=== PATIENT | male | born 1965 | race Caucasian/White ===

== ENCOUNTER → 2019-09-12 14:09 | Outpatient (BNVA) | payer MEDICARE, MEDICAID, SELFPAY | PROVIDERS: Visit Provider Nurse Practitioner Family | DX: R05 Cough (principal) | CPT/HCPCS: 71046 ==

== ENCOUNTER → 2019-09-17 11:22 | Outpatient (BNVA) | payer MEDICARE, MEDICAID, SELFPAY | PROVIDERS: Visit Provider Nurse Practitioner Family | DX: J43.9 Emphysema, unspecified (principal); J18.9 Pneumonia, unspecified organism | CPT/HCPCS: 71046 ==

== ENCOUNTER 2019-09-18 05:08 | Emergency (ER) | payer MEDICARE, MEDICAID, SELFPAY ==
[2019-09-18 05:12] VITALS: BP 137/89; PULSE 87; RESP 20; TEMP 37; O2SAT 93; BMI 22.1
--- NOTE | 2019-09-18 05:22 | ED_ITS ---
Entered by Brenda Arredondo, acting as scribe for Documented by User: Emma Rivera MD 09/18/19 05:37 HPI - SOB/Dyspnea General: Chief Complaint: Shortness of Breath/Dyspnea Stated Complaint: SOB/COUGH Time Seen by Provider: 09/18/19 05:22 Source: patient Mode of arrival: ambulatory Limitations: no limitations History of Present Illness: HPI Narrative: 54 yo m came to the er for shortness of breath. Patient states that he has had cough and shortness of breath over the last 2 days. Patient recently seen at an urgent care and was placed on prednisone along with Augmentin. He does have a history of COPD and was a former smoker. He states that his cough got much worse and is productive in nature. He denies any worsening or improving factors. He denies any fevers. Denies any sick contacts.. MD elicited complaint: shortness of breath and cough Pertinent past history: COPD Onset (ago): day(s) (last night) Timing: constant Severity: mild Exacerbating factors: nothing Relieving factors: nothing Known history of: COPD Associated symptoms: Reports cough; Deny abdominal pain, chest pain, fever(s), nausea or vomiting Treatment prior to arrival: none Review of Systems General: Reports: other (negative unless marked) Const: Denies: fever, chills, body aches or change in appetite Eyes: Denies: blurry vision or eye discomfort ENMT: Denies: throat pain or dental pain Card: Denies: chest pain Resp: Reports: shortness of breath, productive cough and wheezing GI: Denies: abdominal pain, nausea, vomiting or diarrhea : Denies: painful urination Musc: Denies: neck pain or back pain Skin/Breast: Denies: rash Neuro: Denies: headache Psych: Denies: depression Jc/Lymph: Denies: easy bruising All/Imm: Denies: hives PFSH ED PFSH: Statuses (acute, chronic, etc) shown below reflect problem list status as previously entered and may not be historically accurate Social History Smoking and tobacco status: former smoker Physical Exam Const: COMMON NORMALS: no apparent distress, oriented x3 and healthy appearing HENMT: COMMON NORMALS: normocephalic and head/scalp atraumatic HEAD & SCALP: normocephalic and atraumatic Eye: COMMON NORMALS: PERRL and EOMs intact bilaterally PUPIL: Yes PERRL Neck/C-Spine: COMMON NORMALS: full ROM and supple Chest: COMMONS NORMALS: inspection of chest normal and palpation of chest normal Resp: COMMON NORMALS: normal respiratory effort, no retractions and no use of accessory muscles AUSCULTATION: wheezes Cardio: COMMON NORMALS: regular rate, regular rhythm and no murmurs RATE: regular rate RHYTHM: regular rhythm GI: COMMON NORMALS: normal to inspection, nondistended, normoactive bowel sounds, soft to palpation, non-tender and no masses PALPATION: Yes soft Extremity: COMMON NORMALS: normal to inspection and full ROM Neuro: COMMON NORMALS: oriented x3, moves all extremities and no focal motor deficits Psych: COMMON NORMALS: mental status grossly normal, thought process normal and cooperative THOUGHT PROCESS: normal thought process Skin: COMMON NORMALS: no rashes or lesions noted and no wounds GENERAL SKIN EXAM: no rashes or lesions noted Course Vital Signs: Vital signs: Vital Signs Temperature 98.8 F 09/18/19 05:44 Pulse Rate 80 09/18/19 08:17 Respiratory Rate 20 H 09/18/19 08:17 Blood Pressure 110/64 09/18/19 08:17 Pulse Oximetry 97 09/18/19 08:17 MDM - SOB/Dyspnea MDM Narrative: Medical decision making narrative: Patient presents with cough and congestion that is likely COPD versus a pneumonia. We will get x-rays along with labs. Patient's care turned over to Dr. Laws and he will follow these. Lab Data: Labs: Lab Results 09/18/19 09/18/19 Range/Units 05:50 05:50 WBC 8.3 (4.0-10.0) 10^3/ uL RBC 5.22 (4.1-5.3) 10^6/u L Hgb 15.3 (11.7-16.6) g/dL Hct 46.6 (42.0-52.0) % MCV 89.3 (80-94) fL MCH 29.3 (28.0-34.0) pg MCHC 32.8 (30.0-36.0) g/dL RDW 12.9 (12.1-15.1) % Plt Count 159 (130-400) 10^3/c mm MPV 10.7 H (7.4-10.4) fL Neut % (Auto) 78.4 % Lymph % (Auto) 8.2 % [place] % (Auto) 11.0 % Eos % (Auto) 1.6 % Baso % (Auto) 0.4 % Neut # (Auto) 6.5 (1.8-7.7) 10^3/u L Lymph # (Auto) 0.7 L (0.8-4.8) 10^3/u L [place] # (Auto) 0.9 (0.2-0.9) 10^3/u L Eos # (Auto) 0.1 (0.0-0.8) 10^3/u L Baso # (Auto) 0.0 (0.0-0.1) 10^3/u L Nucleated RBC % (a uto) 0 % Nucleated RBCs # 0.0 /100WBC Sodium 140 (136-145) mmol/L Potassium 3.7 (3.5-5.1) mmol/L Chloride 99 (98-107) mmol/L Carbon Dioxide 30 H (22-29) mmol/L Anion Gap 14.7 (5-19) BUN 17 (6-20) mg/dL Creatinine 0.9 (0.7-1.2) mg/dL GFR Calculation 88.3 L (90-130) mL/min Glucose 98 (65-115) mg/dL Calcium 9.8 (8.5-10.5) mg/dL Total Bilirubin 0.7 (0.15-1.2) mg/dL AST 16 (0-40) U/L ALT 17 (0-41) U/L Alkaline Phosphata se 90 (40-130) IU/L NT-Pro-B Natriuret Pep 68 (0-125) pg/mL Total Protein 8.1 (6.6-8.7) g/dL Albumin 4.2 (3.5-5.2) g/dL Globulin 3.9 (1.3-4.6) g/dL Discharge Plan Discharge Patient Disposition: Home, Self-Care Clinical Impression: Pneumonia, Acute exacerbation of chronic obstructive airways disease Condition: Stable Prescriptions: No Action albuterol sulfate [Ventolin HFA] 90 mcg/actuation HFA aerosol inhaler 2 puff INHALATION QID PRN (Reason: shortness of breath or wheezing) Qty: 18 RF: 0 amoxicillin-pot clavulanate [Augmentin] 875-125 mg tablet 1 tab PO BID 10 Days Qty: 20 RF: 0 prednisone 10 mg tablets,dose pack See Rx Instructions PO PER PKG DIR Qty: 21 RF: 0 Discharge Orders: Discharge Order (Routine); Ordered 09/18/19 Ordered By: Dilip Kitchen Discharge Diet: Usual diet Discharge Activity: Increase activity as tolerated Activity Restrictions/Additional Instructions: Continue current medications no changes. Follow-up with your primary care doctor as scheduled if symptoms worsen or change return Discharge Date/Time: 09/18/19 08:18 Coding Level of Care Code ED Circuitry Negative Inspector for Chg Fwd Exam Problem Focused Documented by User: Dilip Kitchen DO 09/19/19 13:58 HPI - SOB/Dyspnea General: Chief Complaint: Shortness of Breath/Dyspnea Stated Complaint: SOB/COUGH Time Seen by Provider: 09/18/19 05:22 PFSH ED PFSH: Statuses (acute, chronic, etc) shown below reflect problem list status as previously entered and may not be historically accurate Social History Smoking and tobacco status: former smoker Physical Exam Const: COMMON NORMALS: no apparent distress GENERAL APPEARANCE: cooperative and comfortable ORIENTATION/CONSCIOUSNESS: Yes awake, Yes oriented to person, Yes oriented to place and Yes oriented to time HENMT: COMMON NORMALS: normocephalic, head/scalp atraumatic, hearing grossly normal bilaterally, external ears normal, EAC's normal, TM's normal bilaterally, nasal mucous membranes and turbinates normal, moist oral mucous membranes and oropharynx normal HEAD & SCALP: normocephalic and atraumatic NOSE: nasal mucous membranes and turbinates normal EXTERNAL EAR: Yes external ears normal EXTERNAL AUDITORY CANAL: EAC's normal TYMPANIC MEMBRANE: TM's normal bilaterally Eye: COMMON NORMALS: PERRL, EOMs intact bilaterally, conjunctivae normal and no scleral icterus CONJUNCTIVA: Yes conjunctivae normal PUPIL: Yes PERRL Neck/C-Spine: COMMON NORMALS: full ROM, no lymphadenopathy, supple and no JVD Lymph: LYMPHATIC: no lymphadenopathy noted and no lymphedema noted Resp: AUSCULTATION: wheezes (mild) throughout Cardio: COMMON NORMALS: no JVD, regular rate, regular rhythm and no murmurs RATE: regular rate RHYTHM: regular rhythm GI: COMMON NORMALS: soft to palpation and no hepatosplenomegaly AUSCULTATION: Yes normoactive bowel sounds PALPATION: Yes soft, No tender, No guarding and Yes no hepatosplenomegaly Extremity: COMMON NORMALS: normal to inspection, normal capillary refill, no clubbing, cyanosis or edema, no calf tenderness and no pedal edema Neuro: SENSORIUM/ORIENTATION: Yes oriented to person, Yes oriented to place and Yes oriented to time Skin: COMMON NORMALS: no rashes or lesions noted GENERAL SKIN EXAM: no rashes or lesions noted Course ED course: Patient improved will discharge home on amoxicillin clavulanic acid also on prednisone and albuterol. Vital Signs: Vital signs: Vital Signs Temperature 98.8 F 09/18/19 05:44 Pulse Rate 80 09/18/19 08:17 Respiratory Rate 20 H 09/18/19 08:17 Blood Pressure 110/64 09/18/19 08:17 Pulse Oximetry 97 09/18/19 08:17 MDM - SOB/Dyspnea Lab Data: Labs: Lab Results 09/18/19 09/18/19 Range/Units 05:50 05:50 WBC 8.3 (4.0-10.0) 10^3/ uL RBC 5.22 (4.1-5.3) 10^6/u L Hgb 15.3 (11.7-16.6) g/dL Hct 46.6 (42.0-52.0) % MCV 89.3 (80-94) fL MCH 29.3 (28.0-34.0) pg MCHC 32.8 (30.0-36.0) g/dL RDW 12.9 (12.1-15.1) % Plt Count 159 (130-400) 10^3/c mm MPV 10.7 H (7.4-10.4) fL Neut % (Auto) 78.4 % Lymph % (Auto) 8.2 % [place] % (Auto) 11.0 % Eos % (Auto) 1.6 % Baso % (Auto) 0.4 % Neut # (Auto) 6.5 (1.8-7.7) 10^3/u L Lymph # (Auto) 0.7 L (0.8-4.8) 10^3/u L [place] # (Auto) 0.9 (0.2-0.9) 10^3/u L Eos # (Auto) 0.1 (0.0-0.8) 10^3/u L Baso # (Auto) 0.0 (0.0-0.1) 10^3/u L Nucleated RBC % (a uto) 0 % Nucleated RBCs # 0.0 /100WBC Sodium 140 (136-145) mmol/L Potassium 3.7 (3.5-5.1) mmol/L Chloride 99 (98-107) mmol/L Carbon Dioxide 30 H (22-29) mmol/L Anion Gap 14.7 (5-19) BUN 17 (6-20) mg/dL Creatinine 0.9 (0.7-1.2) mg/dL GFR Calculation 88.3 L (90-130) mL/min Glucose 98 (65-115) mg/dL Calcium 9.8 (8.5-10.5) mg/dL Total Bilirubin 0.7 (0.15-1.2) mg/dL AST 16 (0-40) U/L ALT 17 (0-41) U/L Alkaline Phosphata se 90 (40-130) IU/L NT-Pro-B Natriuret Pep 68 (0-125) pg/mL Total Protein 8.1 (6.6-8.7) g/dL Albumin 4.2 (3.5-5.2) g/dL Globulin 3.9 (1.3-4.6) g/dL Discharge Plan Discharge Patient Disposition: Home, Self-Care Clinical Impression: Pneumonia, Acute exacerbation of chronic obstructive airways disease Condition: Stable Prescriptions: No Action albuterol sulfate [Ventolin HFA] 90 mcg/actuation HFA aerosol inhaler 2 puff INHALATION QID PRN (Reason: shortness of breath or wheezing) Qty: 18 RF: 0 amoxicillin-pot clavulanate [Augmentin] 875-125 mg tablet 1 tab PO BID 10 Days Qty: 20 RF: 0 prednisone 10 mg tablets,dose pack See Rx Instructions PO PER PKG DIR Qty: 21 RF: 0 Discharge Orders: Discharge Order (Routine); Ordered 09/18/19 Ordered By: Dilip Kitchen Discharge Diet: Usual diet Discharge Activity: Increase activity as tolerated Activity Restrictions/Additional Instructions: Continue current medications no changes. Follow-up with your primary care doctor as scheduled if symptoms worsen or change return Discharge Date/Time: 09/18/19 08:18 Coding Level of Care Code ED Circuitry Negative Inspector for Chg Fwd Exam Problem Focused The documentation recorded by the Arnulfo pierce Stephanie Lyn, accurately reflects the service I personally performed and the decisions made by Miguel canales Korby, MD Sep 18, 2019 05:08
--- NOTE | 2019-09-18 05:26 | XR_ITS ---
WS: [id number] PORTABLE CHEST HISTORY: cough COMPARISON: 09/17/2019 Mild pulmonary hyperinflation. Benign calcifications project over the LEFT apex. There is mild inters titial thickening at the lung bases which is new. Slightly greater at the LEFT lung base. No pleural effusion or pneumothorax. Cardiac size: Normal. Mediastinum/Aorta: Normal mediastinum. Marked deformity of the mid RIGHT clavicle from an old healed fracture. XR/XR chest 1V portable [id number] IMPRESSION: 1. Bilateral lower lobe pneumonitis or endobronchial inflammatory changes. 2. Mild emphysema.
[2019-09-18 05:44] VITALS: BP 119/80; PULSE 86; RESP 14; TEMP 37.1; O2SAT 100
[2019-09-18 06:01] LABS: Basophils % 0.4 %; Eosinophils # 0.1 10^3/uL (0.0-0.8); Eosinophils % 1.6 %; Hematocrit 46.6 % (42.0-52.0); Hemoglobin 15.3 g/dL (11.7-16.6); Lymphocytes # 0.7 10^3/uL (0.8-4.8); Lymphocytes % 8.2 %; Mean Corpuscular HGB Conc 32.8 g/dL (30.0-36.0); Mean Corpuscular Hemoglobin 29.3 pg (28.0-34.0); Mean Corpuscular Volume 89.3 fL (80-94); Mean Platelet Volume 10.7 fL (7.4-10.4); Monocytes # 0.9 10^3/uL (0.2-0.9); Neutrophils # 6.5 10^3/uL (1.8-7.7); Neutrophils % 78.4 %; Nucleated Red Blood Cells % 0 %; Platelet Count 159 10^3/cmm (130-400); Red Blood Count 5.22 10^6/uL (4.1-5.3); Red Cell Distribution Width 12.9 % (12.1-15.1); White Blood Count 8.3 10^3/uL (4.0-10.0)
[2019-09-18 06:36] LABS: Alanine Aminotransferase 17 U/L (0-41); Albumin Level 4.2 g/dL (3.5-5.2); Alkaline Phosphatase 90 IU/L (40-130); Anion Gap 14.7 (5-19); Aspartate Amino Transferase 16 U/L (0-40); Blood Urea Nitrogen 17 mg/dL (6-20); Calcium 9.8 mg/dL (8.5-10.5); Carbon Dioxide 30 mmol/L (22-29); Chloride 99 mmol/L (98-107); Globulin 3.9 g/dL (1.3-4.6); Glomerular Filtration Rate 88.3 mL/min (90-130); Glucose 98 mg/dL (65-115); NT Pro B Type Natriuretic Pept 68 pg/mL (0-125); Potassium 3.7 mmol/L (3.5-5.1); Sodium 140 mmol/L (136-145); Total Bilirubin 0.7 mg/dL (0.15-1.2); Total Protein 8.1 g/dL (6.6-8.7)
[2019-09-18 08:17] VITALS: BP 110/64; PULSE 80; RESP 20; O2SAT 97
== END 2019-09-18 08:18 | disposition home or self-care (01) ==
PROVIDERS: Emergency Medicine; Emergency Provider Family Medicine
DX: J18.9 Pneumonia, unspecified organism (principal); J44.1 Chronic obstructive pulmonary disease with (acute) exacerbation; Z87.891 Personal history of nicotine dependence
CPT/HCPCS: 71045; 80053; 83880; 85025; 99282; 99283

== ENCOUNTER 2020-03-07 18:57 | Emergency (ER) | payer MEDICARE, MEDICAID, SELFPAY ==
[2020-03-07 19:02] VITALS: BP 127/87; PULSE 96; RESP 18; TEMP 36.7; O2SAT 94; BMI 20.9
--- NOTE | 2020-03-07 19:08 | ED_ITS ---
HPI - Wound/Laceration General: Chief Complaint: Wound/Laceration Stated Complaint: hand injury Time Seen by Provider: 03/07/20 19:08 History of Present Illness: Associated symptoms: Denies chills, fever(s), nausea or vomiting Review of Systems Const: Denies: fever(s), chills or fatigue Eyes: Denies: change in vision or eye discomfort ENMT: Denies: throat pain, odynophagia, nasal discharge or nasal congestion Card: Denies: chest pain, palpitations, edema, swelling of feet/ankles, dyspnea on exertion or orthopnea Resp: Denies: dyspnea, productive cough or non-productive cough GI: Denies: abdominal pain, nausea, vomiting, diarrhea, constipation or hematochezia : Denies: flank pain, difficulty urinating, dysuria or hematuria Musc: Denies: neck pain, back pain or extremity swelling Skin/Breast: Denies: rash or new lesions Neuro: Denies: headache(s), numbness in extremities or weakness in extremities PFSH ED PFSH: Social History Smoking and tobacco status: former smoker Physical Exam Const: COMMON NORMALS: patient oriented x3 HENMT: COMMON NORMALS: normocephalic HEAD & SCALP: normocephalic MOUTH: Normal oral and palatal mucosa present THROAT: posterior oropharynx normal and uvula midline Neck/C-Spine: COMMON NORMALS: supple GENERAL: Yes normal visual inspection Resp: COMMON NORMALS: normal respiratory effort, No retractions, No use of accessory muscles and clear to auscultation bilaterally AUSCULTATION: clear to auscultation bilaterally Cardio: COMMON NORMALS: regular rate, regular rhythm, S1 normal heart sound present, S2 normal heart sound present, No gallops present (Cardio), No clicks present (Cardio), No murmurs present (Cardio) and Peripheral pulses 2+ throughout RATE: regular rate RHYTHM: regular rhythm HEART SOUNDS: S1 normal heart sound present and S2 normal heart sound present PERIPHERAL PULSES: Peripheral pulses 2+ throughout GI: COMMON NORMALS: Normal to inspection, nondistended, normoactive bowel sounds present, Soft to palpation, non-tender and no masses PALPATION: Yes Soft to palpation : COMMON NORMALS: Yes no CVA tenderness BLADDER/KIDNEY EXAM: Yes no CVA tenderness Back/Pelvis: COMMON NORMALS: no CVA tenderness Neuro: COMMON NORMALS: patient oriented x3 and moves all extremities Course Vital Signs: Vital signs: Vital Signs Temperature 98.1 F 03/07/20 19:02 Pulse Rate 96 03/07/20 19:02 Respiratory Rate 18 03/07/20 19:02 Blood Pressure 127/87 03/07/20 19:02 Pulse Oximetry 94 03/07/20 19:02 Discharge Plan Discharge Prescriptions: No Action albuterol sulfate [Ventolin HFA] 90 mcg/actuation HFA aerosol inhaler 2 puff INHALATION QID PRN (Reason: shortness of breath or wheezing) Qty: 18 RF: 0 prednisone 10 mg tablets,dose pack See Rx Instructions PO PER PKG DIR Qty: 21 RF: 0 Coding Level of Care Code ED Special Officer Automat for Chg Vern
--- NOTE | 2020-03-07 19:29 | W.ED.WOUNDLC ---
HPI - Wound/Laceration General: Chief Complaint: Wound/Laceration Stated Complaint: hand injury Time Seen by Provider: 03/07/20 19:08 Source: patient Mode of arrival: ambulatory Limitations: no limitations History of Present Illness: HPI narrative: 54-year-old male states he stumbled while walking and lacerated his right hand on a piece of 10. Is 1 cm laceration to the palm of his hand and then a very superficial laceration to his right thumb. He states his pain is a 1 out of 10. He did strike his head denies any loss of consciousness and denies any headache at this time. Onset (ago): minute(s) Associated symptoms: Denies chills, fever(s), nausea or vomiting Review of Systems Const: Denies: fever(s), chills, body aches or change in appetite Eyes: Denies: blurry vision or eye discomfort ENMT: Denies: throat pain or dental pain Card: Denies: chest pain Resp: Denies: dyspnea GI: Denies: abdominal pain, nausea, vomiting or diarrhea : Denies: dysuria Musc: Denies: neck pain or back pain Skin/Breast: Denies: rash Neuro: Denies: headache(s) Psych: Denies: depression Jc/Lymph: Denies: easy bruising All/Imm: Denies: urticaria PFSH ED PFSH: Social History Smoking and tobacco status: former smoker Physical Exam Const: COMMON NORMALS: no acute distress, patient oriented x3 and healthy appearing HENMT: COMMON NORMALS: normocephalic and atraumatic HEAD & SCALP: normocephalic and atraumatic Eye: COMMON NORMALS: Equal, round and reactive pupils present and EOMs intact bilaterally PUPIL: Yes Equal, round and reactive pupils present Neck/C-Spine: COMMON NORMALS: full ROM and supple Chest: COMMONS NORMALS: normal inspection of the chest and normal palpation of entire chest wall Resp: COMMON NORMALS: normal respiratory effort, No retractions, No use of accessory muscles and clear to auscultation bilaterally AUSCULTATION: clear to auscultation bilaterally Cardio: COMMON NORMALS: regular rate, regular rhythm and No murmurs present (Cardio) RATE: regular rate RHYTHM: regular rhythm GI: COMMON NORMALS: Normal to inspection, nondistended, normoactive bowel sounds present, Soft to palpation, non-tender and no masses PALPATION: Yes Soft to palpation Extremity: COMMON NORMALS: normal to inspection and full ROM Neuro: COMMON NORMALS: patient oriented x3, moves all extremities and no focal motor deficits Psych: COMMON NORMALS: mental status grossly normal, Normal thought process present and cooperative THOUGHT PROCESS: Normal thought process present Skin: COMMON NORMALS: no rashes or lesions noted NARRATIVE SKIN EXAM: 1 cm laceration to the palm of the hand of his right hand with no tendon involvement and no bleeding at this time. Superficial laceration to the thumb that does not require sutures. GENERAL SKIN EXAM: no rashes or lesions noted Procedures Laceration Laceration 1: Site: upper extremity Side (If applicable): right Size (cm): 1 Description: linear Depth: simple, single layer Pre-repair: wound explored, irrigated extensively and deep structures intact Subcutaneous layer closed with: other (dermabond) Course Vital Signs: Vital signs: Vital Signs Temperature 98.1 F 03/07/20 19:02 Pulse Rate 96 03/07/20 19:02 Respiratory Rate 18 03/07/20 19:02 Blood Pressure 127/87 03/07/20 19:02 Pulse Oximetry 94 03/07/20 19:02 MDM - Wound/Laceration MDM Narrative: Medical decision making narrative: 54-year-old male who presents here with laceration to his palm that was closed with tissue adhesive. Patient was updated on his tetanus. Patient is well-appearing here and is stable for discharge. Discharge Plan Discharge Patient Disposition: Home Clinical Impression: Laceration Condition: Stable Prescriptions: No Action albuterol sulfate [Ventolin HFA] 90 mcg/actuation HFA aerosol inhaler 2 puff INHALATION QID PRN (Reason: shortness of breath or wheezing) Qty: 18 RF: 0 prednisone 10 mg tablets,dose pack See Rx Instructions PO PER PKG DIR Qty: 21 RF: 0 Discharge Orders: Discharge Order (Routine); Ordered 03/07/20 Ordered By: Emma Rivera Discharge Diet: Advance as tolerated Discharge Activity: Resume usual activity Patient Instructions: Laceration (ED) Coding Level of Care Code ED Hospital Intern for Iam Porras
[2020-03-07] MEDS: tetanus-dipt-pertussis 0.5 mL SDV IM (19:37)
== END 2020-03-07 19:57 | disposition home or self-care (01) ==
PROVIDERS: Emergency Provider Emergency Medicine
DX: S61.411A Laceration without foreign body of right hand, initial encounter (principal); W26.8XXA Contact with other sharp object(s), not elsewhere classified, initial encounter; Z87.891 Personal history of nicotine dependence; Z23 Encounter for immunization
CPT/HCPCS: 12001; 12345; 90715; 99281; 99282

== ENCOUNTER → 2020-04-30 11:05 | Outpatient (BNVA) | payer MEDICARE, MEDICAID, SELFPAY | PROVIDERS: Visit Provider Nurse Practitioner Family | DX: Z20.828 Contact with and (suspected) exposure to other viral communicable diseases (principal) | CPT/HCPCS: 87635 ==

== ENCOUNTER 2020-05-02 09:31 | Emergency (ER) | payer MEDICARE, MEDICAID, SELFPAY ==
[2020-05-02 09:41] VITALS: BP 153/88; PULSE 100; RESP 18; TEMP 36.2; O2SAT 93; BMI 20.3
[2020-05-02 09:46] VITALS: BP 153/88; PULSE 94; RESP 16; O2SAT 94
--- NOTE | 2020-05-02 09:50 | XRR_ITS ---
PROCEDURE INFORMATION: Exam: XR Left Elbow Exam date and time: 05/02/2020 9:51 AM Age: 55 years old Clinical indication: Injury or trauma; Injury history: Cut elbow; Initial encounter; Laceration; Left; Additional info: Foreign body TECHNIQUE: Imaging protocol: XR Left elbow. Views: 3 or more views. COMPARISON: No relevant prior studies available. FINDINGS: Bones/joints: No fracture. No dislocation. No anterior or posterior fat pad sign. Soft tissues: There is a posterior superficial soft tissue injury. No radiopaque foreign body. XR/XR elbow LT min 3V* [id number] IMPRESSION: Soft tissue injury without osseous injury.
--- NOTE | 2020-05-02 10:02 | ED_ITS ---
HPI - Wound/Laceration General: Chief Complaint: Wound/Laceration Stated Complaint: LEFT ARM LAC Time Seen by Provider: 05/02/20 09:46 History of Present Illness: HPI narrative: 55-year-old male patient presents to the emergency department complaining of laceration to his left elbow. Patient states he was working and smashed his elbow through a window. Patient arrives to emergency department with bleeding controlled. Patient is neurovascular intact distally. Patient's immunizations are up-to-date to include his tetanus shot. Associated symptoms: Denies fever(s) Review of Systems General: Reports: 10 or more systems reviewed and unremarkable except in HPI and below Const: Denies: fever(s) Card: Denies: chest pain Resp: Denies: dyspnea Musc: Reports: extremity pain (2 cm laceration to left elbow) PFS ED PFSH: Social History Smoking and tobacco status: former smoker Quit status (tobacco): has quit using tobacco Former quit date comment: PPD since age 14, states has been quit a long time Second hand smoke exposure: No Alcohol intake: former Lives independently: No Household members: family Marital status: Single Current occupational status: disabled History of recent travel: No Current gender identity: Male Physical Exam Const: COMMON NORMALS: no acute distress, average body habitus, patient oriented x3, no limitations, healthy appearing, alert and well nourished Neck/C-Spine: COMMON NORMALS: no JVD Resp: COMMON NORMALS: normal respiratory effort, No retractions, No use of accessory muscles, clear to auscultation bilaterally and percussion normal AUSCULTATION: clear to auscultation bilaterally PERCUSSION: percussion normal Cardio: COMMON NORMALS: no JVD, regular rate and regular rhythm RATE: regular rate RHYTHM: regular rhythm Extremity: LEFT UPPER EXTREMITY: Yes elbow joint (Pt has a 2 cm linear laceration pt is NVI distally. Bleeding is controlled) Neuro: COMMON NORMALS: patient oriented x3 SENSORIUM/ORIENTATION: Yes alert Psych: COMMON NORMALS: mental status grossly normal, Normal thought process present, cooperative, normal affect, speech normal, activity/motor behavior normal, denies hallucinations, denies homicidal ideation and denies suicidal ideation SPEECH: Yes normal speech THOUGHT PROCESS: Normal thought process present Skin: COMMON NORMALS: no rashes or lesions noted, no wounds, turgor normal, no jaundice, no petechiae and no mottling GENERAL SKIN EXAM: no rashes or lesions noted and turgor normal Procedures Laceration Laceration 1: Site: upper extremity (left elbow) Side (If applicable): left Size (cm): 2 Description: linear Depth: simple, single layer Local Anesthetic: lidocaine 1% and with epi Amount of anesthesia used (mL): 5 Pre-repair: wound explored and irrigated extensively Skin layer closed with: nylon Size (cm): 5-0 Number of sutures: 5 Technique: simple, interrupted Subcutaneous layer closed with: other (nylon) Course Vital Signs: Vital signs: Vital Signs Temperature 97.2 F L 05/02/20 09:41 Pulse Rate 94 05/02/20 09:46 Respiratory Rate 16 05/02/20 09:46 Blood Pressure 153/88 05/02/20 09:46 Pulse Oximetry 94 05/02/20 09:46 MDM - Wound/Laceration MDM Narrative: Medical decision making narrative: Patient is well-appearing nontoxic and in no acute distress. Patient has a laceration to his left elbow please see procedure note for suture repair. Patient states this was an accident and nonintentional patient denies any SI or HI. Patient is neurovascularly intact distally to injury. Wound was dressed. Patient's tetanus shot is up-to-date. Return precautions discussed home care instructions reviewed patient is medically cleared and appropriate for discharge I did do an x-ray to evaluate for possible foreign body and there was no evidence of foreign body Differential Diagnosis: Wound Differential Diagnosis: Likely laceration, abrasion and avulsion of skin Discharge Plan Discharge Patient Disposition: Home Condition: Stable Discharge Orders: Discharge Order (Routine); Ordered 05/02/20 Ordered By: Piper Guerrier Discharge Diet: Advance as tolerated Discharge Activity: Resume usual activity Patient Instructions: Laceration (ED), Suture Care (ED) Activity Restrictions/Additional Instructions: Please return to ER or PCP in 8-10 days or sooner for signs of infection as discussed or any other concerning findings Please follow wound care instructions as discussed and provided Coding Level of Care Code ED Construction Equipment Technician for Iam Porras
[2020-05-02 11:08] VITALS: BP 113/68; PULSE 87; RESP 16; O2SAT 94
== END 2020-05-02 11:05 | disposition home or self-care (01) ==
PROVIDERS: Emergency Provider Registered Nurse
DX: S51.012A Laceration without foreign body of left elbow, initial encounter (principal); W25.XXXA Contact with sharp glass, initial encounter
CPT/HCPCS: 12001; 12345; 73080; 99282; 99283

== ENCOUNTER 2021-01-07 20:40 | Emergency (ER) | payer MEDICARE, MEDICAID, SELFPAY ==
[2021-01-07 21:07] VITALS: BP 126/90; PULSE 88; RESP 15; TEMP 36.8; O2SAT 95; BMI 21.2
--- NOTE | 2021-01-07 22:08 | CTR_ITS ---
PROCEDURE INFORMATION: Exam: CT Cervical Spine Without Contrast Exam date and time: 01/07/2021 10:25 PM Age: 55 years old Clinical indication: Injury or trauma; Blunt trauma; Patient HX: Fall off porch TECHNIQUE: Imaging protocol: Computed tomography images of the cervical spine without contrast. Radiation optimization: All CT scans at this facility use at least one of these dose optimization techniques: automated exposure control; mA and/or kV adjustment per patient size (includes targeted exams where dose is matched to clinical indication); or iterative reconstruction. COMPARISON: No relevant prior studies available. RADIATION DOSE METRICS: Total DLP (mGy-cm): 600.2 FINDINGS: Bones/joints: Spinal alignment is normal. Vertebral body height is maintained. There is no acute fracture. There is mild multilevel facet spondylosis. There are bulky anterior vertebral osteophytes from C4 through C7. There is no acute fracture. 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 Discs/Spinal canal/Neural foramina: There is mild degenerative disc disease in the cervical spine. There is no spinal canal stenosis. Lungs: Lung apices are normal. Vasculature: There is mild atherosclerotic disease of the carotid arteries bilaterally. Soft tissues: Soft tissues in the neck and thoracic inlet are unremarkable. CT/CT cervical spin wo con* [id number] IMPRESSION: No acute fracture. Radiation Dose CTDIVOL = (mGy): DLP = 600.2 (mGy-cm)
--- NOTE | 2021-01-07 22:08 | CTR_ITS ---
PROCEDURE INFORMATION: Exam: CT Head Without Contrast Exam date and time: 01/07/2021 10:25 PM Age: 55 years old Clinical indication: Injury or trauma; Blunt trauma (contusions or hematomas); Injury details: Fall off porch TECHNIQUE: Imaging protocol: Computed tomography of the head without contrast. Radiation optimization: All CT scans at this facility use at least one of these dose optimization techniques: automated exposure control; mA and/or kV adjustment per patient size (includes targeted exams where dose is matched to clinical indication); or iterative reconstruction. COMPARISON: [place] [id number] 08/28/2018 8:01 AM RADIATION DOSE METRICS: Total DLP (mGy-cm): 1104.16 FINDINGS: Brain: There is hypoattenuation in the periventricular and subcortical white matter consistent with chronic microvascular disease. There is no acute intracranial hemorrhage. Cerebral ventricles: There is no significant ventricular dilation. The basal cisterns are unremarkable. Paranasal sinuses: The paranasal sinuses are clear. Mastoid air cells: The mastoid air cells are clear. Bones/joints: The calvarium is intact. Soft tissues: Unremarkable. CT/CT head wo con* [id number] IMPRESSION: No acute intracranial abnormality. Radiation Dose CTDIVOL = (mGy): DLP = 1104.16 (mGy-cm)
--- NOTE | 2021-01-07 22:08 | XRR_ITS ---
PROCEDURE INFORMATION: Exam: XR Right Shoulder Exam date and time: 01/07/2021 10:19 PM Age: 55 years old Clinical indication: Injury or trauma; Blunt trauma (contusions or hematomas); Shoulder; Right; Injury details: Fall off porch TECHNIQUE: Imaging protocol: XR Right shoulder. Views: 2 or more views. COMPARISON: No relevant prior studies available. FINDINGS: Bones/joints: Healed fracture of the clavicular shaft with residual deformity. No acute fracture or dislocation. Soft tissues: Unremarkable. XR/XR shoulder RT min 2V* [id number] IMPRESSION: No acute findings.
--- NOTE | 2021-01-07 23:07 | ED_ITS ---
HPI - Fall General: Chief Complaint: Fall Stated Complaint: pain inright side shoulder and neck,fell off porch Time Seen by Provider: 01/07/21 22:29 Source: patient Mode of arrival: ambulatory Limitations: no limitations History of Present Illness: HPI Narrative: 55-year-old male states he was walking and tripped and fell off a porch onto the ground. He states that he fell onto his right shoulder and neck and has had right shoulder neck pain since then. He also struck his head and has a mild headache. He denies any other injuries. Has been amatory since the event. He states the pain is a 5 out of 10. Denies any numbness or tingling. Associated symptoms-after fall: Reports headache(s) and neck pain; Denies abdominal pain or chest pain Review of Systems Const: Denies: fever(s), chills, body aches or change in appetite Eyes: Denies: blurry vision or eye discomfort ENMT: Denies: throat pain or dental pain Card: Denies: chest pain Resp: Denies: dyspnea GI: Denies: abdominal pain, nausea, vomiting or diarrhea : Denies: dysuria Musc: Reports: neck pain and extremity pain Skin/Breast: Denies: rash Neuro: Reports: headache(s) Psych: Denies: depression Jc/Lymph: Denies: easy bruising All/Imm: Denies: urticaria PFSH ED PFSH: Social History Smoking and tobacco status: former smoker Quit status (tobacco): has quit using tobacco Former quit date comment: PPD since age 14, states has been quit a long time Second hand smoke exposure: No Alcohol intake: former Lives independently: No Household members: family Marital status: Single Current occupational status: disabled History of recent travel: No Current gender identity: Male Physical Exam Const: COMMON NORMALS: no acute distress, patient oriented x3 and healthy appearing HENMT: COMMON NORMALS: normocephalic and atraumatic HEAD & SCALP: normocephalic and atraumatic Eye: COMMON NORMALS: Equal, round and reactive pupils present and EOMs intact bilaterally PUPIL: Yes Equal, round and reactive pupils present Neck/C-Spine: OTHER: currently in c collar Chest: COMMONS NORMALS: normal inspection of the chest and normal palpation of entire chest wall Resp: COMMON NORMALS: normal respiratory effort, No retractions, No use of accessory muscles and clear to auscultation bilaterally AUSCULTATION: clear to auscultation bilaterally Cardio: COMMON NORMALS: regular rate, regular rhythm and No murmurs present (Cardio) RATE: regular rate RHYTHM: regular rhythm GI: COMMON NORMALS: Normal to inspection, nondistended, normoactive bowel sounds present, Soft to palpation, non-tender and no masses PALPATION: Yes Soft to palpation Extremity: COMMON NORMALS: normal to inspection and full ROM NARRATIVE EXTREMITY EXAM: slight tenderness over right shoulder full rom Neuro: COMMON NORMALS: patient oriented x3, moves all extremities and no focal motor deficits Psych: COMMON NORMALS: mental status grossly normal, Normal thought process present and cooperative THOUGHT PROCESS: Normal thought process present Skin: COMMON NORMALS: no rashes or lesions noted and no wounds GENERAL SKIN EXAM: no rashes or lesions noted Course Vital Signs: Vital signs: Vital Signs Temperature 98.2 F 01/07/21 21:07 Pulse Rate 88 01/07/21 21:07 Respiratory Rate 15 01/07/21 21:07 Blood Pressure 126/90 01/07/21 21:07 Pulse Oximetry 95 01/07/21 21:07 MDM - Fall MDM Narrative: Medical decision making narrative: Greyson presents here with contusion to the shoulder and a neck strain. CT scans here are all negative. He is well-appearing here and is stable for discharge. He is to ice here and will place him on Naprosyn and Robaxin. He is return if worsening. Imaging Data^: xr r shoulder: Attestation: I personally reviewed and interpreted this imaging study as follows: Radiologist's impression: [address] [place] [address] XRay Report Signed Patient: Greyson Aguilar Unit #: [id number] : 1965 Age/Sex: 55 / M ADM Date: 01/07/21 Loc: ER Room/Bed: Attending Dr: Ordering Provider/Ordering MD: Emma Rivera MD Date of Service: 01/07/21 Procedure(s): XR shoulder RT min 2V* [id number] Accession Number(s): [id number] Report Number: [id number] PROCEDURE INFORMATION: Exam: XR Right Shoulder Exam date and time: 01/07/2021 10:19 PM Age: 55 years old Clinical indication: Injury or trauma; Blunt trauma (contusions or hematomas); Shoulder; Right; Injury details: Fall off porch TECHNIQUE: Imaging protocol: XR Right shoulder. Views: 2 or more views. COMPARISON: No relevant prior studies available. FINDINGS: Bones/joints: Healed fracture of the clavicular shaft with residual deformity. No acute fracture or dislocation. Soft tissues: Unremarkable. CT Head: Radiologist's impression: [facility] [place] [address] CT Scan Report Signed Patient: Greyson Aguilar Unit #: [id number] : 1965 Age/Sex: 55 / M ADM Date: 01/07/21 Loc: ER Room/Bed: Attending Dr: Ordering Provider/Ordering MD: Emma Rivera MD Date of Service: 01/07/21 Procedure(s): CT head wo con* [id number] Accession Number(s): [id number] Report Number: [id number] PROCEDURE INFORMATION: Exam: CT Head Without Contrast Exam date and time: 01/07/2021 10:25 PM Age: 55 years old Clinical indication: Injury or trauma; Blunt trauma (contusions or hematomas); Injury details: Fall off porch TECHNIQUE: Imaging protocol: Computed tomography of the head without contrast. Radiation optimization: All CT scans at this facility use at least one of these dose optimization techniques: automated exposure control; mA and/or kV adjustment per patient size (includes targeted exams where dose is matched to clinical indication); or iterative reconstruction. COMPARISON: [place] [id number] 08/28/2018 8:01 AM RADIATION DOSE METRICS: Total DLP (mGy-cm): 1104.16 FINDINGS: Brain: There is hypoattenuation in the periventricular and subcortical white matter consistent with chronic microvascular disease. There is no acute intracranial hemorrhage. Cerebral ventricles: There is no significant ventricular dilation. The basal cisterns are unremarkable. Paranasal sinuses: The paranasal sinuses are clear. Mastoid air cells: The mastoid air cells are clear. Bones/joints: The calvarium is intact. Soft tissues: Unremarkable. CT/CT head wo con* [id number] IMPRESSION: No acute intracranial abnormality. ct c spine: Attestation: I personally reviewed and interpreted this imaging study as follows: Radiologist's impression: [facility] [address] [address] Scan Report Signed Patient: Greyson Aguilar Unit #: [id number] : 1965 Age/Sex: 55 / M ADM Date: 01/07/21 Loc: ER Room/Bed: Attending Dr: Ordering Provider/Ordering MD: Emma Rivera MD Date of Service: 01/07/21 Procedure(s): CT cervical spin wo con* [id number] Accession Number(s): [id number] Report Number: [id number] PROCEDURE INFORMATION: Exam: CT Cervical Spine Without Contrast Exam date and time: 01/07/2021 10:25 PM Age: 55 years old Clinical indication: Injury or trauma; Blunt trauma; Patient HX: Fall off porch TECHNIQUE: Imaging protocol: Computed tomography images of the cervical spine without contrast. Radiation optimization: All CT scans at this facility use at least one of these dose optimization techniques: automated exposure control; mA and/or kV adjustment per patient size (includes targeted exams where dose is matched to clinical indication); or iterative reconstruction. COMPARISON: No relevant prior studies available. RADIATION DOSE METRICS: Total DLP (mGy-cm): 600.2 FINDINGS: Bones/joints: Spinal alignment is normal. Vertebral body height is maintained. There is no acute fracture. There is mild multilevel facet spondylosis. There are bulky anterior vertebral osteophytes from C4 through C7. There is no acute fracture. 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 Discs/Spinal canal/Neural foramina: There is mild degenerative disc disease in the cervical spine. There is no spinal canal stenosis. Lungs: Lung apices are normal. Vasculature: There is mild atherosclerotic disease of the carotid arteries bilaterally. Soft tissues: Soft tissues in the neck and thoracic inlet are unremarkable. CT/CT cervical spin wo con* [id number] IMPRESSION: No acute fracture. Radiation Dose CTDIVOL = (mGy): DLP = Discharge Plan Discharge Patient Disposition: Home Clinical Impression: Contusion of right shoulder, Fall, Cervical muscle strain Condition: Stable Prescriptions: New Robaxin-750 750 mg tablet 750 mg PO Q6H Qty: 30 RF: 0 Naprosyn 500 mg tablet 500 mg PO BID PRN (Reason: pain) Qty: 20 RF: 0 No Action carbamide peroxide [Debrox] 6.5 % drops 5 drop EAR-BOTH Q12H 4 Days Qty: 15 RF: 0 Discharge Orders: Discharge ED (Routine); Ordered 01/07/21 Ordered By: Emma Rivera Discharge Diet: Advance as tolerated Discharge Activity: Resume usual activity Patient Instructions: Shoulder Sprain (ED) Coding Level of Care Code ED Apparel Stock Checker for Ryang Fwd Exam Comprehensive
[2021-01-07] MEDS: HYDROcodone-acetaminophen 5-325 mg Tablet 1 TAB PO (23:21)
[2021-01-08] VITALS: BP 153/81; PULSE 76; RESP 17; O2SAT 97
== END 2021-01-08 00:04 | disposition home or self-care (01) ==
PROVIDERS: Emergency Provider Emergency Medicine
DX: S40.011A Contusion of right shoulder, initial encounter (principal); S16.1XXA Strain of muscle, fascia and tendon at neck level, initial encounter; Z87.891 Personal history of nicotine dependence; W17.89XA Other fall from one level to another, initial encounter
CPT/HCPCS: 70450; 72125; 73030; 99283

== ENCOUNTER 2021-02-18 17:19 | Emergency (ER) | payer MEDICARE, MEDICAID, SELFPAY ==
[2021-02-18 18:11] VITALS: BP 108/70; PULSE 101; RESP 20; TEMP 38.9; O2SAT 95; BMI 21.2
--- NOTE | 2021-02-18 19:30 | XRR_ITS ---
PROCEDURE INFORMATION: Exam: XR Chest Exam date and time: 02/18/2021 7:30 PM Age: 55 years old Clinical indication: Cough and shortness of breath; Additional info: SOB TECHNIQUE: Imaging protocol: XR of the chest. Views: 1 view. COMPARISON: CR XR chest 1V portable [id number] 09/18/2019 6:08 AM FINDINGS: Lungs: Emphysematous lung changes. Interstitial opacities are mildly increased at the bases and more conspicuous than prior. No spiculated pulmonary lesion. Hyperinflated lungs. Granulomas in the left upper lobe are stable. Pleural spaces: Unremarkable. No pleural effusion. No pneumothorax. Heart/Mediastinum: Unremarkable. No cardiomegaly. Bones/joints: Unremarkable. XR/XR chest 1V portable [id number] IMPRESSION: Mild relatively symmetric increase in infrahilar interstitial opacities. Aspiration pneumonitis or other multifocal pneumonia in the differential.
--- NOTE | 2021-02-18 23:12 | W.ED.COVID ---
HPI - COVID General: Chief Complaint: COVID symptoms Stated Complaint: COVID+, WEAK, SOB Time Seen by Provider: 02/18/21 23:03 Triage information: Has fever, cough or shortness of breath. No known COVID + exposure last 14 days History of Present Illness: HPI Narrative: Patient comes in today for complaints of cough and congestion for 2 to 3 days. Patient reports that at night he gets the chills and shakes. Patient states his brother told him that he had COVID-19. Review of the record has no report of COVID-19. Patient is moving oxygen well and does have a fever. COVID 19 common symptoms: positive fever(s) and productive cough COVID Results: SARS-CoV-2 Antigen (Rapid) Positive (Negative) H 02/18/21 23:30 02/18/21 SARS-CoV-2 RNA (RT-PCR) Not detected (NOT DETECTED) 04/30/20 11:05 04/30/20 Review of Systems General: Reports: 10 or more systems reviewed and unremarkable except in HPI and below Const: Reports: fever(s) Resp: Reports: productive cough PFSH ED PFSH: Social History Smoking and tobacco status: former smoker Quit status (tobacco): has quit using tobacco Former quit date comment: PPD since age 14, states has been quit a long time Second hand smoke exposure: No Alcohol intake: former Lives independently: No Household members: family Marital status: Single Current occupational status: disabled History of recent travel: No Current gender identity: Male Physical Exam Const: COMMON NORMALS: no acute distress and patient oriented x3 GENERAL APPEARANCE: cooperative HENMT: COMMON NORMALS: normocephalic, TM's normal bilaterally and Normal external nose present HEAD & SCALP: normal to inspection and normocephalic NOSE: Normal external nose present TYMPANIC MEMBRANE: TM's normal bilaterally MOUTH: Normal oral and palatal mucosa present THROAT: posterior oropharynx normal Eye: GENERAL EYE: appearance normal, both eyes and all related structures Neck/C-Spine: COMMON NORMALS: full ROM Lymph: LYMPHATIC: no lymphadenopathy noted Chest: COMMONS NORMALS: normal inspection of the chest Resp: COMMON NORMALS: normal respiratory effort EFFORT & INSPECTION: Yes able to speak in complete sentences AUSCULTATION: rhonchi Cardio: COMMON NORMALS: regular rate and regular rhythm RATE: regular rate RHYTHM: regular rhythm GI: COMMON NORMALS: non-tender : COMMON NORMALS: Yes no CVA tenderness BLADDER/KIDNEY EXAM: Yes no CVA tenderness Back/Pelvis: COMMON NORMALS: no CVA tenderness and thoracic and lumbar spine normal to inspection Extremity: COMMON NORMALS: normal to inspection Neuro: COMMON NORMALS: patient oriented x3 and moves all extremities Psych: COMMON NORMALS: mental status grossly normal and cooperative Skin: COMMON NORMALS: no rashes or lesions noted GENERAL SKIN EXAM: no rashes or lesions noted Course Vital Signs: Vital signs: Vital Signs Temperature 102.1 F H 02/18/21 18:11 Pulse Rate 103 H 02/18/21 23:45 Respiratory Rate 16 02/18/21 23:41 Blood Pressure 94/60 02/18/21 23:41 Pulse Oximetry 95 02/18/21 23:41 MDM - COVID MDM Narrative: Medical decision making narrative: Patient comes in today for complaints of fever, chills, shaking, and cough. On exam patient was febrile at 102 degrees. Patient was alert and responding appropriately to questions. Lungs were coarse throughout. Patient was told by his brother that he had a positive Covid test. Although review of the chart did not indicate any prior Covid testing. Differential diagnosis includes pneumonia, viral syndrome, bronchitis. Laboratory values showed a positive SARS Covid 2 antigen test, laboratory values show the elevated CRP, rest of his labs were unremarkable. Lactate was negative. Patient was given 1 L of IV fluids, acetaminophen for fever, and 10 mg of dexamethasone, and albuterol inhaler. Patient will be continued on home with dexamethasone, doxycycline for secondary infection, and the albuterol inhaler. Patient was maintaining oxygen well into the 95 to 98% on room air. Lab Data: Labs: Lab Results 02/18/21 02/18/21 02/18/21 Range/Units 23:30 23:30 23:30 WBC 3.9 L (4.0-10.0) 10^3/ uL RBC 4.54 (4.1-5.3) 10^6/u L Hgb 13.5 (11.7-16.6) g/dL Hct 41.0 L (42.0-52.0) % MCV 90.3 (80-94) fL MCH 29.7 (28.0-34.0) pg MCHC 32.9 (30.0-36.0) g/dL RDW 12.8 (12.1-15.1) % Plt Count 104 L (130-400) 10^3/c mm MPV 11.4 H (7.4-10.4) fL Neut % (Auto) 71.2 % Lymph % (Auto) 21.3 % Mason % (Auto) 6.9 % Eos % (Auto) 0.0 % Baso % (Auto) 0.3 % Neut # (Auto) 2.77 (1.8-7.7) 10^3/u L Lymph # (Auto) 0.8 (0.8-4.8) 10^3/u L Mason # (Auto) 0.3 (0.2-0.9) 10^3/u L Eos # (Auto) 0.0 (0.0-0.8) 10^3/u L Baso # (Auto) 0.0 (0.0-0.1) 10^3/u L Nucleated RBC % (a uto) 0 % Nucleated RBCs # 0.0 /100WBC Sodium 137 (136-145) mmol/L Potassium 3.3 L (3.5-5.1) mmol/L Chloride 98 (98-107) mmol/L Carbon Dioxide 28 (22-29) mmol/L Anion Gap 14.3 (5-19) BUN 12 (6-20) mg/dL Creatinine 0.9 (0.7-1.2) mg/dL GFR Calculation 87.9 L (90-130) mL/min Glucose 86 (65-115) mg/dL Calculated Osmolal ity 283 L (285-295) mOsm/k g Lactic Acid 1.3 (0.5-2.2) mmol/L Calcium 8.0 L (8.5-10.5) mg/dL Total Bilirubin 0.5 (0.15-1.2) mg/dL AST 102 H (0-40) U/L ALT 30 (0-41) U/L Alkaline Phosphata se 87 (40-130) IU/L C-Reactive Protein 115.1 H (0.0-4.9) mg/L NT-Pro-B Natriuret Pep 114 (0-125) pg/mL Total Protein 6.8 (6.6-8.7) g/dL Albumin 3.7 (3.5-5.2) g/dL Globulin 3.1 (1.3-4.6) g/dL SARS-CoV-2 Ag (Rap id) (Negative) 02/18/21 Range/Units 23:30 WBC (4.0-10.0) 10^3/ uL RBC (4.1-5.3) 10^6/u L Hgb (11.7-16.6) g/dL Hct (42.0-52.0) % MCV (80-94) fL MCH (28.0-34.0) pg MCHC (30.0-36.0) g/dL RDW (12.1-15.1) % Plt Count (130-400) 10^3/c mm MPV (7.4-10.4) fL Neut % (Auto) % Lymph % (Auto) % Mason % (Auto) % Eos % (Auto) % Baso % (Auto) % Neut # (Auto) (1.8-7.7) 10^3/u L Lymph # (Auto) (0.8-4.8) 10^3/u L Mason # (Auto) (0.2-0.9) 10^3/u L Eos # (Auto) (0.0-0.8) 10^3/u L Baso # (Auto) (0.0-0.1) 10^3/u L Nucleated RBC % (a uto) % Nucleated RBCs # /100WBC Sodium (136-145) mmol/L Potassium (3.5-5.1) mmol/L Chloride (98-107) mmol/L Carbon Dioxide (22-29) mmol/L Anion Gap (5-19) BUN (6-20) mg/dL Creatinine (0.7-1.2) mg/dL GFR Calculation (90-130) mL/min Glucose (65-115) mg/dL Calculated Osmolal ity (285-295) mOsm/k g Lactic Acid (0.5-2.2) mmol/L Calcium (8.5-10.5) mg/dL Total Bilirubin (0.15-1.2) mg/dL AST (0-40) U/L ALT (0-41) U/L Alkaline Phosphata se (40-130) IU/L C-Reactive Protein (0.0-4.9) mg/L NT-Pro-B Natriuret Pep (0-125) pg/mL Total Protein (6.6-8.7) g/dL Albumin (3.5-5.2) g/dL Globulin (1.3-4.6) g/dL SARS-CoV-2 Ag (Rap id) Positive H (Negative) COVID Results: SARS-CoV-2 Antigen (Rapid) Positive (Negative) H 02/18/21 23:30 02/18/21 SARS-CoV-2 RNA (RT-PCR) Not detected (NOT DETECTED) 04/30/20 11:05 04/30/20 Discharge Plan Discharge Patient Disposition: Home Clinical Impression: Pneumonia due to COVID-19 virus Condition: Stable Prescriptions: New dexamethasone 6 mg tablet 6 mg PO DAILY Qty: 5 RF: 0 doxycycline monohydrate 100 mg capsule 100 mg PO BID 7 Days Qty: 14 RF: 0 No Action carbamide peroxide [Debrox] 6.5 % drops 5 drop EAR-BOTH Q12H 4 Days Qty: 15 RF: 0 Robaxin-750 750 mg tablet 750 mg PO Q6H Qty: 30 RF: 0 Naprosyn 500 mg tablet 500 mg PO BID PRN (Reason: pain) Qty: 20 RF: 0 Discharge Orders: Discharge ED (Routine); Ordered 02/19/21 Ordered By: Justino Herndon Discharge Diet: Usual diet Discharge Activity: Increase activity as tolerated Patient Instructions: Viral Pneumonia (ED), Opioid Safety Activity Restrictions/Additional Instructions: Drink plenty of fluids. It is important to stay well-hydrated. Use acetaminophen and ibuprofen for pain and fever. Take medications as directed. Use albuterol inhaler 2 puffs every 4 hours to help with congestion and cough. Follow-up with primary care. Monitor pulse oxygen throughout the day. If you have readings that consistently stay below 90% return to the emergency room for further evaluation and treatment. Coding Level of Care Code ED Photocomposing Machine Operator for Iam Fwd Exam Comprehensive
[2021-02-18 23:19] VITALS: BP 111/52; PULSE 90; RESP 22; O2SAT 95
[2021-02-18 23:20] VITALS: O2SAT 95
[2021-02-18 23:30] VITALS: PULSE 101; RESP 20; O2SAT 92
[2021-02-18] MEDS: albuterol 8 gm MDI 2 PUFF INHALATION (23:30)
[2021-02-18] MEDS: sodium chloride 0.9% 1,000 ML 999 ML IV (23:37)
[2021-02-18] MEDS: acetaminophen 325 mg Tablet 650 MG PO (23:38)
[2021-02-18] MEDS: dexamethasone 4 mg/mL INJ 10 MG IVP (23:38)
[2021-02-18 23:41] VITALS: BP 94/60; PULSE 95; RESP 16; O2SAT 95
[2021-02-18 23:45] VITALS: PULSE 103
[2021-02-18 23:47] LABS: Basophils % 0.3 %; Hemoglobin 13.5 g/dL (11.7-16.6); Lymphocytes # 0.8 10^3/uL (0.8-4.8); Lymphocytes % 21.3 %; Mean Corpuscular HGB Conc 32.9 g/dL (30.0-36.0); Mean Corpuscular Hemoglobin 29.7 pg (28.0-34.0); Mean Corpuscular Volume 90.3 fL (80-94); Mean Platelet Volume 11.4 fL (7.4-10.4); Monocytes # 0.3 10^3/uL (0.2-0.9); Monocytes % 6.9 %; Neutrophils # 2.77 10^3/uL (1.8-7.7); Neutrophils % 71.2 %; Nucleated Red Blood Cells % 0 %; Platelet Count 104 10^3/cmm (130-400); Red Blood Count 4.54 10^6/uL (4.1-5.3); Red Cell Distribution Width 12.8 % (12.1-15.1); White Blood Count 3.9 10^3/uL (4.0-10.0)
[2021-02-19 00:01] LABS: Lactic Sepsis W/Reflex 1.3 mmol/L (0.5-2.2)
[2021-02-19 00:07] LABS: SARS Covid-2 Antigen Positive (Negative)
[2021-02-19 00:11] LABS: Alanine Aminotransferase 30 U/L (0-41); Albumin Level 3.7 g/dL (3.5-5.2); Alkaline Phosphatase 87 IU/L (40-130); Anion Gap 14.3 (5-19); Aspartate Amino Transferase 102 U/L (0-40); Blood Urea Nitrogen 12 mg/dL (6-20); C Reactive Protein 115.1 mg/L (0.0-4.9); Carbon Dioxide 28 mmol/L (22-29); Chloride 98 mmol/L (98-107); Globulin 3.1 g/dL (1.3-4.6); Glomerular Filtration Rate 87.9 mL/min (90-130); Glucose 86 mg/dL (65-115); NT Pro B Type Natriuretic Pept 114 pg/mL (0-125); Osmolality Calculated 283 mOsm/kg (285-295); Potassium 3.3 mmol/L (3.5-5.1); Sodium 137 mmol/L (136-145); Total Bilirubin 0.5 mg/dL (0.15-1.2); Total Protein 6.8 g/dL (6.6-8.7)
--- NOTE | 2021-02-19 00:19 | PC.NURSE ---
report to Spencer MOLINA
[2021-02-19 01:09] VITALS: BP 130/85; PULSE 80; RESP 18; TEMP 36.9; O2SAT 95
== END 2021-02-19 01:24 | disposition home or self-care (01) ==
PROVIDERS: Emergency Medicine; Emergency Provider Nurse Practitioner Family
DX: U07.1 COVID-19 (principal); J12.82 Pneumonia due to coronavirus disease 2019; Z87.891 Personal history of nicotine dependence
CPT/HCPCS: 71045; 80053; 83605; 83880; 85025; 86140; 87426; 94640; 96361; 96374; 99284; J1100; J3535; J7030

== ENCOUNTER 2021-02-20 13:55 | Emergency (ER) | payer MEDICARE, MEDICAID, SELFPAY ==
[2021-02-20] VITALS (7 sets, daily range): BP systolic 93–121; BP diastolic 59–82; PULSE 72–88; RESP 14–18; TEMP 36.4; O2SAT 90–96; BMI 21.2
--- NOTE | 2021-02-20 15:28 | XRR_ITS ---
PROCEDURE INFORMATION: Exam: XR Chest Exam date and time: 02/20/2021 3:28 PM Age: 55 years old Clinical indication: Cough; Additional info: Covid+known TECHNIQUE: Imaging protocol: XR of the chest. Views: 1 view. COMPARISON: CR (CHEST, ) 02/18/2021 8:20 PM FINDINGS: Lungs: Stable bibasilar atelectasis versus infiltrate. Emphysematous changes. Left upper lobe stable calcified granulomas. Pleural spaces: Unremarkable. No pleural effusion. No pneumothorax. Heart/Mediastinum: Unremarkable. No cardiomegaly. Bones/joints: Unremarkable. XR/XR chest 1V portable [id number] IMPRESSION: 1. Stable bibasilar atelectasis versus infiltrate. 2. Emphysematous changes. 3. Left upper lobe stable calcified granulomas.
[2021-02-20] MEDS: sodium chloride 0.9% 1,000 ML 999 ML IV (16:21)
[2021-02-20 16:36] LABS: Basophils % 0.3 %; Hematocrit 42.7 % (42.0-52.0); Lymphocytes # 0.5 10^3/uL (0.8-4.8); Lymphocytes % 6.3 %; Mean Corpuscular HGB Conc 32.8 g/dL (30.0-36.0); Mean Corpuscular Hemoglobin 29.5 pg (28.0-34.0); Mean Corpuscular Volume 90.1 fL (80-94); Mean Platelet Volume 11.6 fL (7.4-10.4); Monocytes # 0.6 10^3/uL (0.2-0.9); Neutrophils # 7.35 10^3/uL (1.8-7.7); Neutrophils % 85.1 %; Nucleated Red Blood Cells % 0 %; Platelet Count 135 10^3/cmm (130-400); Red Blood Count 4.74 10^6/uL (4.1-5.3); Red Cell Distribution Width 13.2 % (12.1-15.1); White Blood Count 8.6 10^3/uL (4.0-10.0)
[2021-02-20 16:50] LABS: Lactate (Lactic Acid level) 1.5 mmol/L (0.5-2.2)
[2021-02-20] MEDS: albuterol 8 gm MDI 2 PUFF INHALATION (16:50)
[2021-02-20 16:51] LABS: Alanine Aminotransferase 42 U/L (0-41); Albumin Level 3.7 g/dL (3.5-5.2); Alkaline Phosphatase 94 IU/L (40-130); Anion Gap 14.2 (5-19); Aspartate Amino Transferase 123 U/L (0-40); Blood Urea Nitrogen 22 mg/dL (6-20); Calcium 8.9 mg/dL (8.5-10.5); Carbon Dioxide 30 mmol/L (22-29); Chloride 103 mmol/L (98-107); Globulin 3.2 g/dL (1.3-4.6); Glomerular Filtration Rate 117.5 mL/min (90-130); Glucose 115 mg/dL (65-115); Osmolality Calculated 300 mOsm/kg (285-295); Potassium 4.2 mmol/L (3.5-5.1); Sodium 143 mmol/L (136-145); Total Bilirubin 0.5 mg/dL (0.15-1.2); Total Protein 6.9 g/dL (6.6-8.7)
--- NOTE | 2021-02-20 18:14 | ED_ITS ---
HPI - SOB/Dyspnea General: Chief Complaint: Shortness of Breath/Dyspnea Stated Complaint: SOB, COVID +, weakness Time Seen by Provider: 02/20/21 15:12 History of Present Illness: HPI Narrative: The patient is a 55-year-old male suffering from Covid for approximately a week who comes to the ER complaining of increased weakness, shortness of breath. He is mentally handicapped and I called his brother on the phone who said he is slightly more confused than usual and he had oxygen levels at home that dipped to 88% and then later 85% on room air so he brought him to the ER. Patient was seen here couple days ago and tested positive for Covid and was given doxycycline and a steroid to go home with. The patient still has those. His lungs are clear to auscultation bilaterally and he is resting comfortably. He says he has not eaten or drank anything in the past couple days. Context: recent illness Timing: constant Severity: moderate Associated symptoms: Reports no associated symptoms; Deny abdominal pain, chest pain, cough, dizziness, extremity pain, fever(s), nausea, orthopnea, palpitations, polyuria or vomiting Treatment prior to arrival: none Review of Systems General: Reports: 10 or more systems reviewed and unremarkable except in HPI and below Const: Reports: fatigue; Denies: fever(s) Eyes: Denies: change in vision, blurry vision or eye redness ENMT: Denies: throat pain, swelling of lips/tongue, ear or mastoid pain or nasal congestion Card: Denies: chest pain, palpitations, irregular heart rhythm, edema, dyspnea on exertion or orthopnea Resp: Reports: dyspnea; Denies: productive cough or non-productive cough GI: Denies: abdominal pain, nausea or vomiting : Denies: flank pain, urinary frequency or urinary urgency Musc: Denies: neck pain, back pain, extremity pain, joint pain, joint redness, limited range of motion or muscle weakness Skin/Breast: Denies: rash, pruritus, erythema, skin pain or skin tenderness Neuro: Denies: headache(s), numbness in extremities, weakness in extremities, sensory changes, difficulty walking, dizziness, confusion or Slurred speech present Psych: Denies: anxiety or depression Endo: Denies: polyuria All/Imm: Denies: urticaria, throat swelling or tongue swelling PFSH ED PFSH: Social History Smoking and tobacco status: former smoker Quit status (tobacco): has quit using tobacco Former quit date comment: PPD since age 14, states has been quit a long time Second hand smoke exposure: No Alcohol intake: former Lives independently: No Household members: family Marital status: Single Current occupational status: disabled History of recent travel: No Current gender identity: Male Physical Exam Const: COMMON NORMALS: no acute distress, average body habitus, patient oriented x3, no limitations, healthy appearing, alert and well nourished GENERAL APPEARANCE: cooperative, comfortable, well kempt and well developed ORIENTATION/CONSCIOUSNESS: Yes awake, Yes oriented to person, Yes oriented to place and Yes oriented to time HENMT: COMMON NORMALS: normocephalic, external ears normal and Normal external nose present HEAD & SCALP: normal to inspection and normocephalic NOSE: Normal external nose present EXTERNAL EAR: Yes external ears normal MOUTH: Normal oral and palatal mucosa present THROAT: posterior oropharynx normal Eye: COMMON NORMALS: Equal, round and reactive pupils present and EOMs intact bilaterally GENERAL EYE: appearance normal, both eyes and all related structures PUPIL: Yes Equal, round and reactive pupils present Neck/C-Spine: COMMON NORMALS: full ROM, no lymphadenopathy, no meningeal signs and no JVD GENERAL: Yes normal visual inspection Lymph: LYMPHATIC: no lymphadenopathy noted Chest: COMMONS NORMALS: normal inspection of the chest and normal palpation of entire chest wall Resp: COMMON NORMALS: normal respiratory effort, No retractions, No use of accessory muscles, clear to auscultation bilaterally and percussion normal EFFORT & INSPECTION: Yes able to speak in complete sentences AUSCULTATION: clear to auscultation bilaterally PERCUSSION: percussion normal Cardio: COMMON NORMALS: no JVD, regular rate, regular rhythm, S1 normal heart sound present, S2 normal heart sound present and Peripheral pulses 2+ throughout RATE: regular rate RHYTHM: regular rhythm HEART SOUNDS: S1 normal heart sound present and S2 normal heart sound present PERIPHERAL PULSES: Peripheral pulses 2+ throughout GI: COMMON NORMALS: Normal to inspection, nondistended, normoactive bowel sounds present, Soft to palpation, non-tender and no masses INSPECTION: Yes normal to inspection PALPATION: Yes Soft to palpation : COMMON NORMALS: Yes no CVA tenderness BLADDER/KIDNEY EXAM: Yes no CVA tenderness Back/Pelvis: COMMON NORMALS: no CVA tenderness, thoracic and lumbar spine normal to inspection, no thoracic nor lumbar tenderness and thoraco-lumbar ROM normal Extremity: COMMON NORMALS: normal to inspection, full ROM, capillary refill normal, no joint enlargement and no pedal edema GENERAL: Yes normal exam except as noted Neuro: COMMON NORMALS: patient oriented x3, CN's II-XII intact bilaterally, moves all extremities, no focal motor deficits, no sensory deficits noted and gait normal SENSORIUM/ORIENTATION: Yes alert, Yes oriented to person, Yes oriented to place and Yes oriented to time MENINGEAL SIGNS: Yes no meningeal signs Psych: COMMON NORMALS: mental status grossly normal, Normal thought process present, cooperative, normal affect and speech normal APPEARANCE: Yes well kempt ATTITUDE: Yes calm SPEECH: Yes normal speech THOUGHT PROCESS: Normal thought process present Skin: COMMON NORMALS: no rashes or lesions noted GENERAL SKIN EXAM: no rashes or lesions noted Course Vital Signs: Vital signs: Vital Signs Temperature 97.6 F 02/20/21 14:15 Pulse Rate 82 02/20/21 17:17 Respiratory Rate 14 02/20/21 17:17 Blood Pressure 102/69 02/20/21 17:17 Pulse Oximetry 95 02/20/21 17:17 MDM - SOB/Dyspnea MDM Narrative: Medical decision making narrative: The patient tested positive for Covid a couple days and has been sick a week. He has not eaten or drank much over the past couple days. Complains of increased fatigue and continued shortness of breath which is not worse than it has been but just continues to be mild. Oxygen saturation his brother has been checking at home dipped today to 88% and one episode was 85%. He qualified for home oxygen and was sent home after a liter of fluids. After the liter of fluids the patient admitted he feels significantly better and ready to go home. Discussed with the patient's brother Danielito who is here to pick him up and will monitor him closely. He will return to the ER with worsening symptoms at any time. Lab Data: Labs: Lab Results 02/20/21 02/20/21 02/20/21 Range/Units 16:18 16:18 16:18 WBC 8.6 (4.0-10.0) 10^3/ uL RBC 4.74 (4.1-5.3) 10^6/u L Hgb 14.0 (11.7-16.6) g/dL Hct 42.7 (42.0-52.0) % MCV 90.1 (80-94) fL MCH 29.5 (28.0-34.0) pg MCHC 32.8 (30.0-36.0) g/dL RDW 13.2 (12.1-15.1) % Plt Count 135 (130-400) 10^3/c mm MPV 11.6 H (7.4-10.4) fL Neut % (Auto) 85.1 % Lymph % (Auto) 6.3 % [place] % (Auto) 7.0 % Eos % (Auto) 0.0 % Baso % (Auto) 0.3 % Neut # (Auto) 7.35 (1.8-7.7) 10^3/u L Lymph # (Auto) 0.5 L (0.8-4.8) 10^3/u L [place] # (Auto) 0.6 (0.2-0.9) 10^3/u L Eos # (Auto) 0.0 (0.0-0.8) 10^3/u L Baso # (Auto) 0.0 (0.0-0.1) 10^3/u L Nucleated RBC % (a uto) 0 % Nucleated RBCs # 0.0 /100WBC Sodium 143 (136-145) mmol/L Potassium 4.2 (3.5-5.1) mmol/L Chloride 103 (98-107) mmol/L Carbon Dioxide 30 H (22-29) mmol/L Anion Gap 14.2 (5-19) BUN 22 H (6-20) mg/dL Creatinine 0.7 (0.7-1.2) mg/dL GFR Calculation 117.5 (90-130) mL/min Glucose 115 (65-115) mg/dL Calculated Osmolal ity 300 H (285-295) mOsm/k g Lactate 1.5 (0.5-2.2) mmol/L Calcium 8.9 (8.5-10.5) mg/dL Total Bilirubin 0.5 (0.15-1.2) mg/dL AST 123 H (0-40) U/L ALT 42 H (0-41) U/L Alkaline Phosphata se 94 (40-130) IU/L Total Protein 6.9 (6.6-8.7) g/dL Albumin 3.7 (3.5-5.2) g/dL Globulin 3.2 (1.3-4.6) g/dL Discharge Plan Discharge Patient Disposition: Home Clinical Impression: Pneumonia due to COVID-19 virus, Dehydration Condition: Stable Prescriptions: No Action carbamide peroxide [Debrox] 6.5 % drops 5 drop EAR-BOTH Q12H 4 Days Qty: 15 RF: 0 dexamethasone 6 mg tablet 6 mg PO DAILY Qty: 5 RF: 0 doxycycline monohydrate 100 mg capsule 100 mg PO BID 7 Days Qty: 14 RF: 0 Robaxin-750 750 mg tablet 750 mg PO Q6H Qty: 30 RF: 0 Naprosyn 500 mg tablet 500 mg PO BID PRN (Reason: pain) Qty: 20 RF: 0 Discharge Orders: Discharge ED (Routine); Ordered 02/20/21 Ordered By: Torres Bass Other Ambulatory Orders: DME: Oxygen (Order) Location: None Selected Ordered By: Torres Bass Discharge Diet: Advance as tolerated Discharge Activity: Resume usual activity Patient Instructions: Dehydration - Adult, Opioid Safety, Upper Respiratory Infection - Adult Activity Restrictions/Additional Instructions: You have come in today already suffering from Covid and complained of general weakness and your brother said your oxygen was getting low at home. We are sending you home with oxygen to help with this and we have given you a liter of IV fluids which has made you feel much better. Please return to the ER at anytime with worsening symptoms and watch your oxygen levels at home as you have been doing. Follow-up with your primary care physician early next week otherwise return to the ER at anytime with worsening or worrisome symptoms. Have your primary doctor repeat your blood work including your liver function next week. Coding Level of Care Code ED [employer] for Iam Porras
== END 2021-02-20 18:34 | disposition home or self-care (01) ==
PROVIDERS: Emergency Provider Family Medicine
DX: U07.1 COVID-19 (principal); J12.82 Pneumonia due to coronavirus disease 2019; E86.0 Dehydration; Z87.891 Personal history of nicotine dependence
CPT/HCPCS: 71045; 80053; 83605; 85025; 94640; 96360; 99284; J3535; J7030

== ENCOUNTER → 2021-04-21 11:19 | Outpatient (BNVA) | payer MEDICARE, MEDICAID, SELFPAY | PROVIDERS: Visit Provider Nurse Practitioner Family | DX: Z12.5 Encounter for screening for malignant neoplasm of prostate (principal); R53.83 Other fatigue; R26.81 Unsteadiness on feet; Z13.6 Encounter for screening for cardiovascular disorders | CPT/HCPCS: 80053; 80061; 82306; 82607; 84443; 85025; G0103 ==

== ENCOUNTER 2021-04-26 14:46 | Outpatient (CLI) | payer MEDICARE, MEDICAID, SELFPAY ==
--- NOTE | 2021-04-26 14:58 | MR_ITS ---
WS: [id number] MRI BRAIN WITH AND WITHOUT CONTRAST HISTORY: R26.81 - Unsteadiness on feet COMPARISON: 02/16/2012 TECHNIQUE: Multiplanar imaging performed through the brain with MultiHance 15 ml's IV. No acute infarcts are seen. Smith-white matter differentiation is well preserved. Mild symmetric atrop hy. There are very few subcortical foci of increased signal greatest throughout the LEFT cerebrum. No prior infarct. No acute hemorrhage. No susceptibility artifacts or prior lacunar infarcts. Ventricles and extra-axial spaces are normal. Clivus and pituitary gland are normal. Visualized posterior fossa and brainstem are also normal. Postcontrast images are negative for masses or vascular malformations. Dural venous sinuses are normal. Paranasal sinuses: Well aerated with no significant disease. Mastoid air cells: Normal. Calvarium and scalp: Normal. MR/MR head wo/w con [id number] IMPRESSION: 1. No acute infarct or mass. 2. Mild atrophy and mild chronic microvascular ischemic disease.
[2021-04-26] MEDS: gadobenate dimeglumine 20 mL vial IV (15:42)
== END 2021-04-26 14:47 | disposition home or self-care (01) ==
PROVIDERS: Visit Provider Nurse Practitioner Family
DX: R26.81 Unsteadiness on feet (principal); I67.82 Cerebral ischemia; G31.9 Degenerative disease of nervous system, unspecified
CPT/HCPCS: 70553; A9577

== ENCOUNTER → 2021-11-10 11:00 | Outpatient (BNVA) | payer MEDICARE, MEDICAID, SELFPAY | PROVIDERS: Visit Provider Specialist | DX: G30.9 Alzheimer's disease, unspecified (principal); F02.80 Dementia in other diseases classified elsewhere, unspecified severity, without behavioral disturbance, psychotic disturbance, mood disturbance, and anxiety; G80.9 Cerebral palsy, unspecified | CPT/HCPCS: 99204 ==

== ENCOUNTER → 2021-11-11 15:03 | Outpatient (BNVA) | payer MEDICARE, MEDICAID, SELFPAY | PROVIDERS: Visit Provider Nurse Practitioner Family | DX: R05.9 Cough, unspecified (principal); F02.80 Dementia in other diseases classified elsewhere, unspecified severity, without behavioral disturbance, psychotic disturbance, mood disturbance, and anxiety; G30.9 Alzheimer's disease, unspecified; E55.9 Vitamin D deficiency, unspecified; Z13.6 Encounter for screening for cardiovascular disorders | CPT/HCPCS: 71046; 80053; 80061; 82306; 82607; 83735; 84443; 85025 ==

== ENCOUNTER → 2022-03-14 10:05 | Outpatient (BNVA) | payer MEDICARE, MEDICAID, SELFPAY | PROVIDERS: Visit Provider Specialist | DX: G30.9 Alzheimer's disease, unspecified (principal); F02.80 Dementia in other diseases classified elsewhere, unspecified severity, without behavioral disturbance, psychotic disturbance, mood disturbance, and anxiety; G80.9 Cerebral palsy, unspecified; R26.81 Unsteadiness on feet | CPT/HCPCS: 36415; 83516; 83519; 99213; 99214 ==

== ENCOUNTER → 2022-06-16 15:51 | Outpatient (BNVA) | payer MEDICARE, MEDICAID, SELFPAY | PROVIDERS: Visit Provider Registered Nurse Neonatal Intensive Care | DX: Z20.822 Contact with and (suspected) exposure to COVID-19 (principal) | CPT/HCPCS: 87426 ==

== ENCOUNTER → 2022-08-25 13:03 | Outpatient (BNVA) | payer MEDICARE, MEDICAID, SELFPAY | PROVIDERS: PCP Nurse Practitioner Family; Visit Provider Specialist | DX: G30.9 Alzheimer's disease, unspecified (principal); F02.80 Dementia in other diseases classified elsewhere, unspecified severity, without behavioral disturbance, psychotic disturbance, mood disturbance, and anxiety; G70.00 Myasthenia gravis without (acute) exacerbation; G80.9 Cerebral palsy, unspecified; R13.10 Dysphagia, unspecified; Z13.6 Encounter for screening for cardiovascular disorders; J44.9 Chronic obstructive pulmonary disease, unspecified; E55.9 Vitamin D deficiency, unspecified | CPT/HCPCS: 80053; 80061; 82306; 82607; 84443; 85025; 99214 ==

== ENCOUNTER → 2022-09-28 14:44 | Outpatient (BNVA) | payer MEDICARE, MEDICAID, SELFPAY | PROVIDERS: PCP Nurse Practitioner Family; Visit Provider Specialist | DX: G80.9 Cerebral palsy, unspecified (principal); G70.00 Myasthenia gravis without (acute) exacerbation; G30.9 Alzheimer's disease, unspecified; F02.80 Dementia in other diseases classified elsewhere, unspecified severity, without behavioral disturbance, psychotic disturbance, mood disturbance, and anxiety; Z79.52 Long term (current) use of systemic steroids | CPT/HCPCS: 99215 ==

== ENCOUNTER → 2022-10-06 10:51 | Outpatient (BNVA) | payer MEDICARE, MEDICAID, SELFPAY | PROVIDERS: PCP Nurse Practitioner Family; Visit Provider Nurse Practitioner Family | DX: R05.9 Cough, unspecified (principal); R50.9 Fever, unspecified; Z20.822 Contact with and (suspected) exposure to COVID-19 | CPT/HCPCS: 71046; 87400; 87426 ==

== ENCOUNTER 2022-11-08 06:00 | Outpatient (RCR) | payer MEDICARE, MEDICAID, SELFPAY | END 2022-12-04 23:59 | disposition home or self-care (01) | LOC: TST 06:00 | PROVIDERS: PCP Nurse Practitioner Family; Visit Provider Specialist | DX: G70.00 Myasthenia gravis without (acute) exacerbation (principal) | CPT/HCPCS: 80053; 80061; 82306; 84443; 85025; 92507; 92610 ==

== ENCOUNTER → 2022-11-08 09:18 | Outpatient (BNVA) | payer MEDICARE, MEDICAID, SELFPAY | PROVIDERS: PCP Nurse Practitioner Family; Visit Provider Nurse Practitioner Family | DX: U07.1 COVID-19 (principal); J12.82 Pneumonia due to coronavirus disease 2019; G70.00 Myasthenia gravis without (acute) exacerbation; Z13.6 Encounter for screening for cardiovascular disorders; E55.9 Vitamin D deficiency, unspecified | CPT/HCPCS: 80053; 80061; 82306; 84443; 85025 ==

== ENCOUNTER 2022-11-17 10:25 | Outpatient (CLI) | payer MEDICARE, MEDICAID, SELFPAY ==
--- NOTE | 2022-11-17 10:30 | CT_ITS ---
WS: [id number] CT chest w con* [id number] HISTORY: J44.9 - Chronic obstructive pulmonary disease, unspecified TECHNIQUE: Axial imaging performed through the thorax. Coronal and sagittal reformats are submitted. All CT scans at [facility] use at least one of these dose optimization techniques: automated exposure control; mA and/or kV adjustment per patient size (includes targeted exams where dose is mat ched to clinical indication); or iterative reconstruction. CONTRAST: Omnipaque 350; 100 mL IV. DLP: 191.87 mGy.cm COMPARISON: 10/28/[address] Chest radiograph 10/06/2022 Lungs and central airway: Pulmonary hyperinflation. Bilateral predominantly lower lobe areas of opaci fication. There is mild hazy attenuation and mild tree-in-bud airspace opacification. There is lesser extent into the lingula and RIGHT middle lobe. There is no consolidation or mass. Greatest involveme nt is at the RIGHT lung base. Pleura: Normal. No pleural effusion. Heart and pericardium: Normal size heart with no pericardial effusion. Mediastinum and reyes: 11 mm RIGHT hilar lymph node. Indeterminate. Probably reactive. No additional e nlarged or indeterminate lymph nodes. Vessels: Mild atherosclerosis aorta. No aneurysm. Normal size pulmonary artery. Chest wall and lower neck: 5 mm RIGHT thyroid nodule. Upper abdomen: Small hiatal hernia. No adrenal mass. Osseous structures: No destructive process. CT/CT chest w con* [id number] IMPRESSION: 1. Moderate groundglass attenuation and tree-in-bud airspace disease throughou t the lower lobes and to a lesser extent RIGHT middle and lingula. This is most typical for endobronchial pneumonia. Consider aspiration as a possible etiolog y. No mass identified. No significant adenopathy. 2. Chronic emphysema.
[2022-11-17] MEDS: iohexol 350 mg/mL 500 mL Btl (per mL) IV (10:59)
== END 2022-11-17 10:26 | disposition home or self-care (01) ==
LOC: RAD 10:32
PROVIDERS: PCP Nurse Practitioner Family; Visit Provider Nurse Practitioner Family
DX: J43.9 Emphysema, unspecified (principal); R63.4 Abnormal weight loss
CPT/HCPCS: 71260; 80053; 80061; 82306; 84443; 85025; Q9967

== ENCOUNTER 2022-11-24 08:02 | Outpatient (CLI) | payer MEDICARE, MEDICAID, SELFPAY ==
--- NOTE | 2022-11-24 08:29 | FL_ITS ---
WS: [id number] MODIFIED BARIUM SWALLOW TECHNIQUE: Modified barium swallow with speech therapy using multiple consistencies. FLUOROSCOPY TIME: 1min [id number] # of spot films: 0 CLINICAL INFORMATION: Other dysphagia COMPARISON: 2011. FINDINGS: Straightening of the normal cervical lordosis. Prominent protruding osteophytes at C4-C6 with indenta tion on the posterior pharyngeal wall and hypopharynx. This is similar in appearance to 2012 but slig htly progressed. Active moderate aspiration with nectar and puree consistency. Spontaneous cough refl ux is elicited. FL/FL barium swallow modifd [id number] IMPRESSION: 1. Active moderate aspiration with nectar and puree consistency. 2. Prominent protruding osteophytes at C4-C6 with indentation on the posterior pharyngeal wall and hypopharynx. This is similar in appearance to 2012 but sli ghtly progressed.
== END 2022-11-24 08:03 | disposition home or self-care (01) ==
PROVIDERS: PCP Nurse Practitioner Family; Visit Provider Nurse Practitioner Family
DX: R13.19 Other dysphagia (principal); M25.78 Osteophyte, vertebrae
CPT/HCPCS: 74230; 92611

== ENCOUNTER 2022-12-03 17:40 | Emergency (ER) | payer MEDICARE, MEDICAID, SELFPAY ==
[2022-12-03 18:09] VITALS: BP 138/87; PULSE 96; RESP 16; TEMP 36.6; O2SAT 94; BMI 17.4
--- NOTE | 2022-12-03 18:25 | XRR_ITS ---
PROCEDURE INFORMATION: Exam: XR Abdomen Exam date and time: 12/03/2022 6:55 PM Age: 57 years old Clinical indication: Abdominal pain; Generalized; Prior surgery; Surgery date: 6+ months; Surgery type: Feeding tube? ? ; Additional info: Abd pain TECHNIQUE: Imaging protocol: Radiologic exam of the abdomen. Views: Frontal supine view of the abdomen. 1 View. COMPARISON: CT chest w con* [id number] 11/17/2022 10:48 AM FINDINGS: Tubes, catheters and devices: Gastric tube tip seen over right upper abdomen, consider correlation with a contrast study to determine location relative to the stomach. Gastrointestinal tract: Normal. No bowel dilation. Bones/joints: Unremarkable. XR/XR KUB portable [id number] IMPRESSION: Gastric tube tip seen over right upper abdomen, consider correlation with a contrast study to determine location relative to the stomach.
[2022-12-03 18:46] LABS: Basophils # 0.1 10^3/uL (0.0-0.1); Basophils % 0.3 %; Eosinophils % 0.1 %; Hematocrit 52.5 % (42.0-52.0); Hemoglobin 16.9 g/dL (11.7-16.6); Lymphocytes # 2.4 10^3/uL (0.8-4.8); Lymphocytes % 13.9 %; Mean Corpuscular HGB Conc 32.2 g/dL (30.0-36.0); Mean Corpuscular Hemoglobin 29.1 pg (28.0-34.0); Mean Corpuscular Volume 90.5 fl (80-94); Mean Platelet Volume 9.7 fL (7.4-10.4); Monocytes # 1.2 10^3/uL (0.2-0.9); Monocytes % 7.2 %; Neutrophils % 78.3 %; Nucleated Red Blood Cells % 0 %; Platelet Count 271 10^3/cmm (130-400); Red Cell Distribution Width 14.1 % (12.1-15.1); White Blood Count 16.9 10^3/uL (4.0-10.0)
--- NOTE | 2022-12-03 19:05 | ED_ITS ---
HPI - Abdominal Pain General: Chief Complaint: Abdominal Pain Stated Complaint: Feeding Tube issue/ pain Time Seen by Provider: 12/03/22 18:46 Source: patient History of Present Illness: 57-year-old male gentleman who had a G-tube placed yesterday in [facility]. He presents today with left upper quadrant pain. The patient's caregiver states that he gave to 60 cc syringes of free water last night and today, and by instructions was only supposed to give 1 syringe. He is afraid he may have caused the problem. No fever. No vomiting. The tube was placed for aspiration. MD elicited complaint: abdominal pain Pertinent past history: none Onset (ago): hour(s) Pain Consistency: constant Location: LUQ Quality: other Radiation: none Migration to: no migration Exacerbating factors: nothing Relieving factors: nothing Associated Symptoms: Reports nausea and poor appetite; Denies bloating, constipation, diarrhea and vomiting Review of Systems ENMT: Denies: throat pain Card: Denies: chest pain Resp: Denies: dyspnea, productive cough or non-productive cough GI: Reports: nausea; Denies: vomiting, diarrhea, constipation or bloating PFSH ED PFSH: Social History Smoking and tobacco status: former smoker Quit status (tobacco): has quit using tobacco Former quit date comment: PPD since age 14, states has been quit a long time Second hand smoke exposure: No Alcohol intake: former Substance/Drug Use: former Caregiver/support person: Yes (brother) Lives independently: No Household members: family Marital status: Single Current occupational status: disabled Current gender identity: Male Special darshan needs: No Physical Exam Const: GENERAL APPEARANCE: cooperative, ill appearing and frail appearing ORIENTATION/CONSCIOUSNESS: Yes awake, Yes oriented to person and Yes oriented to place HENMT: COMMON NORMALS: normocephalic, atraumatic and Normal external nose present HEAD & SCALP: normocephalic and atraumatic FACE & SINUS: normal facial exam and face symmetric NOSE: Normal external nose present Eye: COMMON NORMALS: Equal, round and reactive pupils present and EOMs intact bilaterally PUPIL: Yes Equal, round and reactive pupils present Neck/C-Spine: GENERAL: Yes trachea midline Chest: CHEST: Yes Symmetrical chest wall rise Resp: COMMON NORMALS: normal respiratory effort, No retractions and No use of accessory muscles AUSCULTATION: rhonchi (Throughout) Cardio: COMMON NORMALS: regular rate and regular rhythm RATE: regular rate RHYTHM: regular rhythm GI: PALPATION: Yes Firmness to palpation present (GI), Yes Tenderness to palpation present (GI) and Yes Guarding due to palpation present (GI) Extremity: COMMON NORMALS: no pedal edema Neuro: KAMRAN COMA SCALE: document GCS findings Kamran coma scale eye opening: Spontaneous [place] coma scale verbal response: Orientated [place] coma scale motor response: Obey commands Kamran coma scale total score: 15 SENSORIUM/ORIENTATION: Yes oriented to person and Yes oriented to place SENSORY EXAM: Yes extremities (intact) Psych: COMMON NORMALS: speech normal SPEECH: Yes normal speech Skin: COMMON NORMALS: no rashes or lesions noted GENERAL SKIN EXAM: no rashes or lesions noted Course Vital Signs: Vital signs: Vital Signs Temperature 97.8 F 12/03/22 18:09 Pulse Rate 95 12/03/22 20:55 Respiratory Rate 17 12/03/22 20:55 Blood Pressure 143/80 12/03/22 19:33 Pulse Oximetry 95 12/03/22 20:55 Oxygen Delivery Me thod Nasal Cannula 12/03/22 20:55 Oxygen Flow Rate 3 12/03/22 20:55 MDM - Abdominal Pain Medical Decision Making 57-year-old male with increased abdominal pain and rigidity following a G-tube placement in [facility] yesterday. His white blood cell count is 17. Hemoglobin is 17. BMP is not remarkable. KUB showed likely free air. CT scan shows marked inflammatory changes involving the wall of the distal body of the stomach as well as extensive free intraperitoneal air in the upper abdomen. He is given a fluid bolus, covered with antibiotics. We have a call out to [facility] in [place] for transfer there, as his procedure was done there, we do not have GI coverage here. Dr. Hawk accepts at [facility]. We will arange transport once room number given. Vitals remain stable. Lab Data 12/03/22 18:41 12/03/22 18:41 Labs/Radiology: Radiology Impressions KUB X-Ray 12/03/22 18:25 IMPRESSION: Gastric tube tip seen over right upper abdomen, consider correlation with a contrast study to determine location relative to the stomach. Abdomen/Pelvis CT 12/03/22 19:05 IMPRESSION: 1. Interval placement of a gastrostomy tube in the distal body of the stomach. Interval development of marked inflammatory changes involving the wall of the distal body of the stomach compared with 11/17/2022. There is extensive free intraperitoneal air in the upper abdomen. It is uncertain whether this is due to recent placement of the tube with leaking from the tube, or if findings could be due to a perforated gastric ulcer or perforated gastritis. Recommend clinical correlation. 2. Reticulonodular interstitial thickening in the visualized lower lungs and patchy bilateral lower lobe airspace disease. Findings are suspicious for pneumonia, including atypical organisms. Recommend clinical correlation. Insert chest imaging follow-upVisualized portions of the heart are unremarkable. 3. Incidental/nonacute findings are listed in the report. ADDENDUM: 12/03/222030 THIS REPORT CONTAINS FINDINGS THAT MAY BE CRITICAL TO PATIENT CARE. MARCELLO Holguin confirmed on 12/03/2022 at 8:29 PM CDT that a copy of the report containing critical findings was received and there were no questions. . Laboratory Results WBC 16.9 10^3/uL (4.0-10.0) H 12/03/22 18:41 RBC 5.80 10^6/uL (4.1-5.3) H 12/03/22 18:41 Hgb 16.9 g/dL (11.7-16.6) H 12/03/22 18:41 Hct 52.5 % (42.0-52.0) H 12/03/22 18:41 MCV 90.5 fl (80-94) 12/03/22 18:41 MCH 29.1 pg (28.0-34.0) 12/03/22 18:41 MCHC 32.2 g/dL (30.0-36.0) 12/03/22 18:41 RDW 14.1 % (12.1-15.1) 12/03/22 18:41 Plt Count 271 10^3/cmm (130-400) 12/03/22 18:41 MPV 9.7 fL (7.4-10.4) 12/03/22 18:41 Neut % (Auto) 78.3 % 12/03/22 18:41 Lymph % (Auto) 13.9 % 12/03/22 18:41 [place] % (Auto) 7.2 % 12/03/22 18:41 Eos % (Auto) 0.1 % 12/03/22 18:41 Baso % (Auto) 0.3 % 12/03/22 18:41 Neut # (Auto) 13.20 10^3/uL (1.8-7.7) H 12/03/22 18:41 Lymph # (Auto) 2.4 10^3/uL (0.8-4.8) 12/03/22 18:41 [place] # (Auto) 1.2 10^3/uL (0.2-0.9) H 12/03/22 18:41 Eos # (Auto) 0.0 10^3/uL (0.0-0.8) 12/03/22 18:41 Baso # (Auto) 0.1 10^3/uL (0.0-0.1) 12/03/22 18:41 Nucleated RBC % (auto) 0 % 12/03/22 18:41 Nucleated RBCs # 0.0 /100WBC 12/03/22 18:41 Sodium 142 mmol/L (136-145) 12/03/22 18:41 Potassium 4.3 mmol/L (3.5-5.1) 12/03/22 18:41 Chloride 98 mmol/L (98-107) 12/03/22 18:41 Carbon Dioxide 30 mmol/L (22-29) H 12/03/22 18:41 Anion Gap 18.3 (5-19) 12/03/22 18:41 BUN 13 mg/dL (6-20) 12/03/22 18:41 Creatinine 0.7 mg/dL (0.7-1.2) 12/03/22 18:41 GFR Calculation 116.7 mL/min (90-130) 12/03/22 18:41 Glucose 89 mg/dL (65-115) 12/03/22 18:41 Calculated Osmolality 294 mOsm/kg (285-295) 12/03/22 18:41 Lactate 2.4 mmol/L (0.5-2.2) H 12/03/22 18:41 Calcium 9.6 mg/dL (8.5-10.5) 12/03/22 18:41 Total Bilirubin 0.8 mg/dL (0.15-1.2) 12/03/22 18:41 AST 21 U/L (0-40) 12/03/22 18:41 ALT 26 U/L (0-41) 12/03/22 18:41 Alkaline Phosphatase 116 U/L (40-130) 12/03/22 18:41 C-Reactive Protein 200.1 mg/L (0.0-4.9) H 12/03/22 18:41 Total Protein 9.0 g/dL (6.6-8.7) H 12/03/22 18:41 Albumin 4.7 g/dL (3.5-5.2) 12/03/22 18:41 Globulin 4.3 g/dL (1.3-4.6) 12/03/22 18:41 Lipase 22 U/L (13-60) 12/03/22 18:41 Discharge Plan Discharge Patient Disposition: Xfer Short-Term Hosp Clinical Impression: Free intraperitoneal air Condition: Serious Referrals: Maria M Chilel FNP [Primary Care Provider] - Coding Level of Care Code ED Epic [employer] for [facility]ras
--- NOTE | 2022-12-03 19:05 | CTR_ITS ---
PROCEDURE INFORMATION: Exam: CT Abdomen And Pelvis With Contrast Exam date and time: 12/03/2022 7:15 PM Age: 57 years old Clinical indication: Abdominal pain; Localized; Left upper quadrant (luq); Prior surgery; Surgery date: 1-6 months; Surgery type: G tube; Additional info: Luq pain. S/P g tube placement TECHNIQUE: Imaging protocol: Computed tomography of the abdomen and pelvis with contrast. Sagittal and coronal reformatted images were created and reviewed. Radiation optimization: All CT scans at this facility use at least one of these dose optimization techniques: automated exposure control; mA and/or kV adjustment per patient size (includes targeted exams where dose is matched to clinical indication); or iterative reconstruction. Contrast material: OMNI 350; Contrast volume: 100 ml; Contrast route: INTRAVENOUS (IV); REPORTING DATA: Count of CT and Cardiac NM exams in prior 12 months: This patient has received [address] and 0 known cardiac nuclear medicine studies in the 12 months prior to the current study. COMPARISON: CR (ABDOMEN, ) 12/03/2022 6:55 PM RADIATION DOSE METRICS: Total DLP (mGy-cm): 472.06 FINDINGS: Lungs: Reticulonodular interstitial thickening in the visualized lower lungs and patchy bilateral lower lobe airspace disease. Pleural spaces: No pleural effusion. Liver: The liver is unremarkable. Gallbladder and bile ducts: The gallbladder is unremarkable. No biliary ductal dilatation. Pancreas: The pancreas is unremarkable. No pancreatic ductal dilatation. Spleen: The spleen is unremarkable. Adrenal glands: The right and left adrenal glands are unremarkable. Kidneys and ureters: The right and left kidneys are unremarkable. The right and left ureters are unremarkable. Stomach and bowel: Interval placement of a gastrostomy tube in the distal body of the stomach. Interval development of marked circumferential wall thickening with surrounding inflammation involving the wall of the distal body of the stomach compared with 11/17/2022 (series 3, images 28-42). There is extensive free intraperitoneal air in the upper abdomen. No acute abnormality in the small bowel. No acute abnormality in the colon. Appendix: The appendix is visualized and is unremarkable. No findings to suggest acute appendicitis. Intraperitoneal space: No ascites. No loculated fluid collections to suggest an abscess. See also under stomach and bowel . Vasculature: Mild atherosclerotic changes in the visualized arteries. No evidence for aortic aneurysm or aortic dissection. Hepatic veins, portal veins, splenic vein, and SMV are patent. Lymph nodes: No lymphadenopathy. Urinary bladder: The bladder is unremarkable. Reproductive: The prostate gland is mildly enlarged. Bones/joints: Degenerative changes in the spine and hips. Soft tissues: Unremarkable. CT/CT abdomen pelvis w con* [id number] IMPRESSION: 1. Interval placement of a gastrostomy tube in the distal body of the stomach. Interval development of marked inflammatory changes involving the wall of the distal body of the stomach compared with 11/17/2022. There is extensive free intraperitoneal air in the upper abdomen. It is uncertain whether this is due to recent placement of the tube with leaking from the tube, or if findings could be due to a perforated gastric ulcer or perforated gastritis. Recommend clinical correlation. 2. Reticulonodular interstitial thickening in the visualized lower lungs and patchy bilateral lower lobe airspace disease. Findings are suspicious for pneumonia, including atypical organisms. Recommend clinical correlation. Insert chest imaging follow-upVisualized portions of the heart are unremarkable. 3. Incidental/nonacute findings are listed in the report.
[2022-12-03 19:06] LABS: Alanine Aminotransferase 26 U/L (0-41); Albumin Level 4.7 g/dL (3.5-5.2); Alkaline Phosphatase 116 U/L (40-130); Anion Gap 18.3 (5-19); Aspartate Amino Transferase 21 U/L (0-40); Blood Urea Nitrogen 13 mg/dL (6-20); C Reactive Protein 200.1 mg/L (0.0-4.9); Calcium 9.6 mg/dL (8.5-10.5); Carbon Dioxide 30 mmol/L (22-29); Chloride 98 mmol/L (98-107); Globulin 4.3 g/dL (1.3-4.6); Glomerular Filtration Rate 116.7 mL/min (90-130); Glucose 89 mg/dL (65-115); Lipase 22 U/L (13-60); Osmolality Calculated 294 mOsm/kg (285-295); Potassium 4.3 mmol/L (3.5-5.1); Sodium 142 mmol/L (136-145); Total Bilirubin 0.8 mg/dL (0.15-1.2)
[2022-12-03 19:07] LABS: Lactate (Lactic Acid level) 2.4 mmol/L (0.5-2.2)
[2022-12-03] MEDS: iohexol 350 mg/mL 500 mL Btl (per mL) IV (19:12)
[2022-12-03] MEDS: ondansetron 2 mg/ML SDV 2 mL 4 MG IVP (19:29)
[2022-12-03] MEDS: morphine 4 mg/mL SDV 1 mL IVP (19:31)
[2022-12-03 19:33] VITALS: BP 143/80; PULSE 111; RESP 16; O2SAT 93
[2022-12-03 19:40] VITALS: O2SAT 92
[2022-12-03 20:55] VITALS: PULSE 95; RESP 17; O2SAT 95
[2022-12-03] MEDS: ipratropium-albuterol 3 mL Neb INHALATION (20:55)
[2022-12-03] MEDS: sodium chloride 0.9% 1,000 ML 999 ML IV (21:10)
[2022-12-03] MEDS: piperacillin-tazobactam 4.5 GM in sodium chloride 0.9% (plus) 50 ML IV (21:10)
== END 2022-12-03 22:05 | disposition short-term general hospital (02) ==
PROVIDERS: Emergency Provider Emergency Medicine; PCP Nurse Practitioner Family
DX: R93.5 Abnormal findings on diagnostic imaging of other abdominal regions, including retroperitoneum (principal); Z87.891 Personal history of nicotine dependence
CPT/HCPCS: 74018; 74177; 80053; 83605; 83690; 85025; 86140; 94640; J2270; J2405; J2543; J7030; Q9967